=== PATIENT | female | born 2000 | race Hispanic/Latino ===

== ENCOUNTER 2022-09-06 15:25 | Emergency (ER) | payer SELFPAY ==
--- NOTE | 2022-09-06 15:50 | EDPHYS ---
Physician Documentation [facility] Name: Kellee Zaragoza Age: 22 yrs Sex: Female : 2000 Arrival Date: 09/06/2022 Time: 15:28 Bed IW1 Private MD: ED Physician Alan Ordaz HPI: 09/06 15:45 This 22 yrs old Female presents to ER via Unassigned with complaints of kb Infected finger. 16:00 the patient presents with a swollen area of the right index fingernail. Description: kb erythematous, swollen. Onset: The symptoms/episode began/occurred 1 week(s) ago, and became worse. Possible cause(s): unknown. Associated signs and symptoms: Pertinent positives: erythema, swelling. Modifying factors: the symptoms are alleviated by nothing, the symptoms are aggravated by pressure, squeezing the lesion and expressing the contents, touching. Severity of symptoms: At their worst the symptoms were mild, in the emergency department the symptoms are unchanged. The patient has not experienced similar symptoms in the past. The patient has not recently seen a physician. Historical: - Allergies: 15:45 PENICILLINS; mb8 - Home Meds: 15:45 None [Active]; mb8 - PMHx: 15:45 None; mb8 - PSHx: 15:45 section; mb8 - Social history:: Smoking status: Patient denies any tobacco usage or history of. ROS: 16:00 Constitutional: Negative for fever, chills, and weight loss. kb 16:00 Skin: Positive for erythema, swelling, of the right index fingernail. 16:00 All other systems are negative. Exam: 16:00 Constitutional: This is a well developed, well nourished patient who is awake, alert, kb and in no acute distress. Head/Face: Normocephalic, atraumatic. ENT: Moist Mucous membranes Respiratory: Respirations even and unlabored. No increased work of breathing. Talking in full sentences MS/ Extremity: Pulses equal, no cyanosis. Neurovascular intact. Full, normal range of motion. Neuro: Awake and alert, GCS 15, oriented to person, place, time, and situation. Moves all extremities. Normal gait. Psych: Awake, alert, with orientation to person, place and time. Behavior, mood, and affect are within normal limits. 16:00 Skin: abscess, that is small, of the right index fingernail, with fluctuance, with induration. Vital Signs: 15:43 BP 128 / 97; Pulse 82; Resp 15; Temp 98.2; Pulse Ox 99% on R/A; Weight 102.06 kg; mb8 Height 5 ft. 2 in. (157.48 cm); Pain 7/10; 15:43 Body Mass Index 41.15 (102.06 kg, 157.48 cm) 8 Procedures: 16:00 I \T\ D: Incision and drainage was performed for an abscess of the right right index kb fingernail Prepped with alcohol, Incised with 18G needle. Drained small amount purulent fluid. the patient tolerated the procedure well. MDM: 15:42 Patient medically screened. kb 15:44 Data reviewed: vital signs, nurses notes. Data interpreted: Pulse oximetry: on room air kb is 100 %. Interpretation: normal. Counseling: I had a detailed discussion with the patient and/or guardian regarding: the historical points, exam findings, and any diagnostic results supporting the discharge/admit diagnosis, the need for outpatient follow up, a family practitioner, to return to the emergency department if symptoms worsen or persist or if there are any questions or concerns that arise at home. Administered Medications: No medications were administered Disposition: 18:09 Co-signature as Attending Physician, Alan Ordaz MD. rn Disposition Summary: 09/06/22 15:49 Discharge Ordered Location: Home kb Condition: Stable kb Diagnosis - Cutaneous abscess of right hand - paronychia kb Followup: kb - With: Emergency Department - When: As needed - Reason: Worsening of condition Followup: kb - With: Private Physician - When: 2 - 3 days - Reason: Recheck today's complaints, Continuance of care, Re-evaluation by your physician Discharge Instructions: - Discharge Summary Sheet kb - Paronychia, [id number] kb Forms: - Medication Reconciliation Form kb - Thank You Letter kb - Antibiotic Education kb - Prescription Opioid Use kb Prescriptions: - Bactrim DS 800-160 mg Oral Tablet - take 1 tablet by ORAL route every 12 hours for 10 days; 20 tablet; Refills: 0, kb Product Selection Permitted Signatures: Yaneli Garcia, CONCRETE BLOCK LAYER-C CONCRETE BLOCK LAYER-Alan Holbrook MD MD rn Bates, Michael, RN RN mb8 Corrections: (The following items were deleted from the chart) :46 15:45 Allergies: No Known Allergies; shruti mb8 46 15:45 PSHx: Coronary Angioplasty; shruti mb8
--- NOTE | 2022-09-06 15:50 | ER ---
Nurse's Notes [facility] Name: Kellee Zaragoza Age: 22 yrs Sex: Female : 2000 Arrival Date: 09/06/2022 Time: 15:28 Bed IW1 Private MD: Diagnosis: Cutaneous abscess of right hand-paronychia Presentation: 09/06 15:43 Chief complaint: Patient states: swollen right index finger x1 week. Coronavirus mb8 screen: Vaccine status: Patient reports receiving the 2nd dose of the covid vaccine. Ebola Screen: Patient negative for fever greater than or equal to 101.5 degrees Fahrenheit, and additional compatible Ebola Virus Disease symptoms Patient denies exposure to infectious person. Patient denies travel to an Ebola-affected area in the 21 days before illness onset. Initial Sepsis Screen: Does the patient meet any 2 criteria? No. Patient's initial sepsis screen is negative. Does the patient have a suspected source of infection? No. Patient's initial sepsis screen is negative. Risk Assessment: Do you want to hurt yourself or someone else? Patient reports no desire to harm self or others. Onset of symptoms is unknown. 15:43 Method Of Arrival: Ambulatory mb8 15:43 Acuity: MUSTAPHA 4 mb8 Triage Assessment: 15:47 General: Appears in no apparent distress. comfortable, Behavior is calm, cooperative, mb8 appropriate for age. Historical: - Allergies: 15:45 PENICILLINS; mb8 - Home Meds: 15:45 None [Active]; mb8 - PMHx: 15:45 None; mb8 - PSHx: 15:45 section; mb8 - Social history:: Smoking status: Patient denies any tobacco usage or history of. Screenin:46 Abuse screen: Denies threats or abuse. Denies injuries from another. Nutritional mb8 screening: No deficits noted. Tuberculosis screening: No symptoms or risk factors identified. Fall Risk None identified. Assessment: 15:46 Pain: Complains of pain in dorsal aspect of distal phalanx of right index finger and mb8 right index fingernail Pain does not radiate. Pain currently is 7 out of 10 on a pain scale. Quality of pain is described as aching, Pain began 1 week ago Is continuous. Vital Signs: 15:43 BP 128 / 97; Pulse 82; Resp 15; Temp 98.2; Pulse Ox 99% on R/A; Weight 102.06 kg; mb8 Height 5 ft. 2 in. (157.48 cm); Pain 7/10; 15:43 Body Mass Index 41.15 (102.06 kg, 157.48 cm) mb8 ED Course: 15:28 Patient arrived in ED. mr 15:32 Yaneli Garcia FNP-C [facility]. kb 15:32 Alan Ordaz MD is Attending Physician. kb 15:45 Triage completed. mb8 15:46 Arm band placed on. mb8 15:46 No provider procedures requiring assistance completed. Patient did not have IV access mb8 during this emergency room visit. 15:47 Patient has correct armband on for positive identification. mb8 Administered Medications: No medications were administered Medication: 15:46 VIS not applicable for this client. mb8 Outcome: 15:49 Discharge ordered by . kb 16:02 Discharged to home ambulatory. mb8 16:02 Condition: stable 16:02 Discharge instructions given to patient, Instructed on discharge instructions, follow up and referral plans. medication usage, Demonstrated understanding of instructions, follow-up care, medications, Prescriptions given X 1. 16:02 Patient left the ED. mb8 Signatures: Yaneli Garcia FNP-C FNP-Ckb Hector Malaika kraft McknightZach, RN RN mb8 Corrections: (The following items were deleted from the chart) 15:46 15:45 Allergies: No Known Allergies; mb8 mb8 15:46 15:45 PSHx: Coronary Angioplasty; mb8 mb8
[2022-09-06 17:22] VITALS: BP 128/97; TEMP 98.2; O2SAT 99
== END 2022-09-06 16:02 | disposition home or self-care (01) ==
LOC: ER 15:25
PROC: 0H9FXZZ Drainage of Right Hand Skin, External Approach (ICD-10-PCS; principal; 2022-09-06)
DX: L03.011 Cellulitis of right finger (principal)
CPT/HCPCS: 99282

== ENCOUNTER 2023-06-01 11:58 | Emergency (ER) | payer BC ==
--- OUTSIDE RECORDS SUMMARY | 2023-06-01 12:02 | XMS REPORT | Continuity of Care Document ---
:2000 Author Organization [facility] t Address [address] [place] [address] Care Team Providers Name Role Phone PCP, PATIENT DOES NOT HAVE A Primary Care Physician Unavaila Cathleen August Attending Clinician Unknown, Attending Attending Clinician Unavailable CATHLEEN JI Attending Clinician Unavailable Doctor Unassigned, [place] Attending Clinician Unavailable MAGGIE GATES Attending Clinician Unavailable Maggie Gates MD Attending Clinician NITA RODRIGUEZ Attending Clinician Unavailable Nita Curiel Attending Clinician BRIGETTE BETHEA Attending Clinician Unavailable Payers Payer Name Policy Type Policy Number Effective Date Expiration Date Zack [employer] [id number] 2017 2018 HEALTH 00:00:00 00:00:00 [employer] O [id number] 2013 2018 00:00:00 00:00:00 Problems Condition Condition Condition Status Onset Resolution Last Treating Co mments Source Name Details Category Date Date Treatment Clinician Date Morbid Morbid Disease Active Univers obesity obesity 8-30 [place] mass index 00 [place] dical of of Branch 40.0-49.9 40.0-49.9 Nexplanon Nexplanon Disease Active Uni vers in place in place 6-25 ity of 00:00: [place] 00 Medical Branch Obesity Obesity Disease Active Univers (BMI (BMI 4-13 ity of 30-39.9) 30-39.9) 00:00: [place] 00 Medical Branch S/P S/P Disease Active 2017-10 Univers 0-11 ity of section section 00:00: [place] [facility] Family Family Disease Active 2017-10 Univers history of history of 0-11 [place] y of cleft lip cleft [place] 00 Medical palate-mat palate-mat Br anch noheliaal fide cousin cousin History of History of Disease Active U nivers depression depression 6-03 it y of 00:00: [place] [facility] [place] Family Family Disease Active Overview: Univer s history of history of 1-04 [place] ity of congenital congenital 00:00: g of this [place] anomalies anomalies 00 note [facility] might be Branch different from the original. 1. 1st cousin maternal side with cleft palate, 2. 1st cousin maternal side born with 6 toes on both feet Allergies, Adverse Reactions, Alerts Allergy Allergy Status Severity Reaction(s) Onset Inactive Treating Comm ents Source Name Type Date Date Clinician PENICILL DRUG Active Hives 2014-10 Univers IN INGREDI 1-11 ity of 00:00: [place] 00 Medical [place] Penicill Propensi Active Hives 2014-10 Univer s in ty to 1-11 ity of adverse 00:00: [place] reaction 00 Medical s Branch Social History Social Habit Start Date Stop Date Quantity Comments Source Exposure to 2023-02-26 2023-03-08 Not sure [facility] SARS-CoV-2 00:00:00 12:04:00 [place] [facility] (event) Branch Alcohol intake 2022-07-02 2022-07-02 Current [facility] 00:00:00 00:00:00 non-drinker of [facility] alcohol (finding) Branch Tobacco use and 2022-06-29 2022-06-29 Smokeless tobacco Un iversity of exposure 00:00:00 00:00:00 non-user [facility] Sex Assigned At [birth year] Universit y of 00:00:00 00:00:00 [facility] Smoking Status Start Date Stop Date Source Never smoked tobacco [facility] [place] [facility] Medications Ordered Filled Start Stop Current Ordering Indication Dosage Frequency Signature Comments Components Source Medication Medication Date Date Medication? Clinician (SIG) Name Name azithromyci 0 Yes [id number] 250mg Take 1 Univers n 5-09 tablet by ity of (ZITHROMAX 00:00: mouth in [place] Z-DEBI) 250 00 the Medical mg tablet morning. Branch methylPREDN 0 Yes [id number] Take by Univers ISolone 03-08 mouth ity of (MEDROL, 00:00: SEE-INSTRU [place] DEBI,) 4 mg 00 CTIONS. Medica l tablets follow Branch package directions azithromyci Yes [id number] 250mg Take 1 Univers n 5-09 tablet by ity of (ZITHROMAX 00:00: mouth in [place] Z-DEBI) 250 00 the Medical mg tablet morning. Branch methylPREDN Yes [id number] Take by Univers ISolone 09 mouth ity of (MEDROL, 00:00: SEE-INSTRU [place] DEBI,) 4 mg 00 CTIONS. Medica l tablets follow Branch package directions promethazin 2022- Yes [id number] 5mL Take 5 mL Univers e-dextromet 5- 05-20 by mouth 4 i ty of horphan 00:00: 04:59 (four) [place] 6.25-15 00 :00 times Medical mg/5 mL daily for Branch syrup 10 days. promethazin 2022- Yes [id number] 5mL Take 5 mL Univers e-dextromet 5-09 05-20 by mouth 4 i ty of horphan 00:00: 04:59 (four) [place] 6.25-15 00 :00 times Medical mg/5 mL daily for Branch syrup 10 days. No known No No known [facility] rs medications 07-02 medication it y of 14:31: s [address] Immunizations Ordered Filled Immunization Date Status Comments Sour e Immunization Name Name HPV9 2022-07-02 Completed University of 00:00:00 [facility] HPV9 2022-07-02 Completed University of 00:00:00 [facility] HPV9 2022-07-02 Completed University of 00:00:00 [facility] HPV9 2022-07-02 Completed University of 00:00:00 [facility] 2019-04-17 Completed University of 00:00:00 [facility] 2019-04-17 Completed University of 00:00:00 [facility] HPV9 2019-04-17 Completed University of 00:00:00 [facility] Branch HPV9 2019-04-17 Completed University of 00:00:00 [facility] Rho (d) Immune 2019-02-10 Completed University of Globulin 00:00:00 [facility] Rho (d) Immune 2019-02-10 Completed University of Globulin 00:00:00 [facility] Rho (d) Immune 2019-02-10 Completed University of Globulin 00:00:00 [facility] Rho (d) Immune 2019-02-10 Completed University of Globulin 00:00:00 [facility] TDAP 2019-01-25 Completed University of 00:00:00 [facility] TDAP 2019-01-25 Completed University of 00:00:00 [facility] TDAP 2019-01-25 Completed University of 00:00:00 [facility] TDAP 2019-01-25 Completed University of 00:00:00 [facility] Rho (d) Immune 2018-12-14 Completed University of Globulin 00:00:00 [facility] Rho (d) Immune 2018-12-14 Completed University of Globulin 00:00:00 [facility] Rho (d) Immune 2018-12-14 Completed University of Globulin 00:00:00 [facility] Rho (d) Immune 2018-12-14 Completed University of Globulin 00:00:00 [facility] Vital Signs Vital Name Observation Time Observation Value Comments Source Systolic blood 2023-03-08 17:05:00 134 mm[Hg] Univer sity of pressure [facility] Diastolic blood 2023-03-08 17:05:00 87 mm[Hg] Unive rsity of pressure [facility] Heart rate 2023-03-08 17:05:00 85 /min [facility] Body temperature 2023-03-08 17:05:00 36.61 Agnieszka [facility] Respiratory rate 2023-03-08 17:05:00 18 /min [facility] Body height 2023-03-08 17:05:00 154.9 cm [facility] Body weight 2023-03-08 17:05:00 98.385 kg [facility] BMI 2023-03-08 17:05:00 40.98 kg/m2 [facility] Oxygen saturation in 2023-03-08 17:05:00 98 /min [facility] Arterial blood by [facility] Pulse oximetry Branch Systolic blood 2022-07-02 19:30:00 123 mm[Hg] Univer sity of pressure [facility] Diastolic blood 2022-07-02 19:30:00 75 mm[Hg] Unive rsity of pressure [facility] Heart rate 2022-07-02 19:30:00 87 /min [facility] Body temperature 2022-07-02 19:30:00 36.94 Agnieszka [facility] Respiratory rate 2022-07-02 19:30:00 18 /min [facility] Body height 2022-07-02 19:30:00 157.5 cm [facility] Body weight 2022-07-02 19:30:00 106.142 kg [facility] BMI 2022-07-02 19:30:00 42.80 kg/m2 [facility] Procedures Procedure Date / Time Performed Performing Clinician [facility] e POCT TEST 2023-03-08 17:18:00 Cathleen Ji [facility] POCT SARS-COV-2 2023-03-08 17:07:00 Cathleen Ji [place] ANTIGEN (BINAX NOW) Medical Bran [facility] PATIENT 2023-03-08 16:58:48 Doctor Unassigned, No [facility] FINANCIAL POLICY Name [facility] GARDASIL 9 (HPV 9V) 2022-07-02 20:14:37 Maggie Gates [facility] VACCINE [facility] Encounters Start End Encounter Admission Attending Care Care Encounter Source Date/Time Date/Time Type Type Clinicians Facility Department ID 2023-03-08 2023-03-08 Urgent Cathleen Ji [facility] [id number] [facility] [place] [facility] 12:00:00 12:20:00 Care Unknown, Attending HEALTH [id number] ity of [place] 4.2.7.2.686 [place] TRAVON?BLEA [id number] Hi elmer [address] MEDICAL OFFICE BUILDING 2023-03-08 2023-03-08 Outpatient R SULEIMAN, [facility] [id number] Univers 12:00:00 12:00:00 MATTHEWANEUDY itjesús [facility] 2023-03-08 2023-03-08 Orders Doctor GOMEZ [id number] Univers 00:00:00 00:00:00 Only Unassigned, PARAMJIT [id number] ity of [facility] [id number] [place] [id number] [address] 2023-03-08 2023-03-08 Letter Suleiman [facility] [id number] Univers 00:00:00 00:00:00 (Out) [facility] [id number] it y of [place] [id number] [place] TRAVON?BLEA [phone] Hi elmer EY [address] MEDICAL OFFICE BUILDING 2022-10-01 2022-10-01 Outpatient R AD, [facility] [id number] Univers 15:30:00 15:30:00 [facility]22-07-02 2022-07-02 Office Ad, [facility] [id number] Univers 14:30:00 15:03:56 Visit Maggie Domenico MENDES [id number] ity [id number] [id number] Hi elmer [facility] [address] [facility] 2022-07-02 2022-07-02 Outpatient R ADUM, [facility] [id number] Univers 14:30:00 15:03:56 [facility] 2022-06-29 2022-06-29 Outpatient R ADUM, [facility] [id number] Univers 14:30:00 15:06:26 MAGGIE ity [facility] 2022-06-29 2022-06-29 Outpatient R ADUM, [facility] [id number] Univers 14:30:00 15:06:26 MAGGIE [facility] 2022-06-29 2022-06-29 Office Adum, [facility] [id number] Univers 14:30:00 15:06:26 Visit Maggie MENDES [id number] [place] [phone] [address] 2022-06-29 2022-06-29 [facility] 1.2.840.114 [id number] Univers 00:00:00 00:00:00 (Out) Maggie MENDES [id number] ity [place] [id number] [address] 2022-06-28 2022-06-28 Orders Doctor JASON 1.2.840.114 [id number] Univers 00:00:00 00:00:00 Only Unassigned, PARAMJIT [id number] ity of [facility] [facility] [id number] [place] [id number] [facility] [address] [place] 2020-11-20 2020-11-20 Outpatient [facility] [id number] Univers 14:45:00 14:45:00 NITA brooks [facility] 2020-07-11 2020-07-11 [facility] 1.2.840.114 [id number] Univers 00:00:00 00:00:00 Nita Morrison PHP LAMP DEVELOPER [id number] it y of [facility] [id number] [place] MATERNAL [phone] Med ical & CHILD [address] [place] [address] 2020-05-30 2020-05-30 Letter Doctor JASON [id number] Univers 00:00:00 00:00:00 (Out) Unassigned, PARAMJIT [id number] ity of [facility] [id number] [place] [id number] [address] 2018-05-02 2018-05-02 Outpatient BRIGETTE HELTON [facility] [id number] Univers 10:45:00 13:43:42 todd [facility] Results Test Description Test Time Test Comments Results Result Comments Source POCT TEST 2023-03-08 17:18:00 Test Item Value Reference Range Interpretation Comme nts POCT PREG (test code = 1605) Negative On board controls acceptable with C Line Yes (test code = 3574) POCT PREG LOT # (test code = 3575) POCT PREG TEST DATE (test code = 3576) ROSA M (test code = ROSA M) accurate development and interpretation of all internal controls Lab Interpretation (test code = 66576-4) Normal [facility] [place] [facility] ANTIGEN (BINAX NOW)2023-03-08 17:08:00 Test Item Value Reference Range Interpretation Comments POCT SARS-COV-2 ANTIGEN Not Detected Not Detected (test code = 15333-4) On board controls Yes acceptable with C Line (test code = 3574) ROSA M (test code = ROSA M) accurate development and interpretation of all internal controls Lab Interpretation Normal (test code = 87981-3) [facility]
[2023-06-01 12:30] LABS: Absolute Lymphocytes (CBC) 2.7 K/uL (0.7-4.9); Hematocrit 39.3 % (36.0-45.0); Lymphocytes % 26.4 % (15.3-44.8); MPV 7.3 fL (7.6-11.3); RBC Red Blood Cell Count 4.46 M/uL (3.86-4.86)
[2023-06-01 12:33] LABS: Specific Gravity 1.028 (1.005-1.030)
[2023-06-01 12:35] LABS: Urine Bacteria 20-50 /HPF (<20); Urine RBC >50 /HPF (None Seen)
[2023-06-01 12:49] LABS: Albumin 3.5 g/dL (3.4-5.0); Bilirubin Total 0.4 mg/dL (0.2-1.0); Potassium 3.6 mEq/L (3.5-5.1); Protein, Total 7.7 g/dL (6.4-8.2)
--- NOTE | 2023-06-01 14:02 | RAD REPORT ---
EXAM DESCRIPTION: US - Transvaginal OB - 06/01/2023 1:50 pm CLINICAL HISTORY: VAGINAL BLEEDING COMPARISON: No comparisons FINDINGS: The uterus is normal sized. Endometrium measures 9 mm. No IUP is seen. The maternal adnexa and ovaries are within normal limits. Normal Doppler blood flow was demonstrated to both ovaries. IMPRESSION: No IUP is seen. If the patient has a positive HCG level, this would be considered a preg robert of unknown location. Follow-up serial HCG levels and pelvic sonography in 7-10 days would be re commended.
--- NOTE | 2023-06-01 14:25 | EDPHYS ---
Physician Documentation [facility] Name: Kellee Zaragoza Age: 22 yrs Sex: Female : 2000 Arrival Date: 06/01/2023 Time: 11:58 Bed 20 Private MD: ED Physician Alan Ordaz HPI: 06/01 12:33 This 22 yrs old Female presents to ER via Ambulatory with complaints of sb4 Abdominal Pain, Vomiting. 12:33 The patient presents with abdominal pain in the lower abdomen. Onset: The sb4 symptoms/episode began/occurred 1 week(s) ago. The symptoms do not radiate. Associated signs and symptoms: Pertinent positives: nausea and vomiting, dysuria, vaginal bleeding, Pertinent negatives: chest pain, diarrhea, hematuria, shortness of breath. The patient has not experienced similar symptoms in the past. patient states she has been experiencing diffuse lower abdominal pain over the past week associated with heavy vaginal bleeding that she does not attribute to her menstrual cycle. states the pain is so bad she can barely move sometimes and it has caused her to have some dizziness/blurry vision. she also reports urinating more frequently. endorses n/v but denies diarrhea or fevers. 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 - Social history:: Smoking status: Patient denies any tobacco usage or history of. ROS: 12:43 Constitutional: Negative for fever, chills, and weight loss, Eyes: Negative for injury, sb4 pain, redness, and discharge, ENT: Negative for injury, pain, and discharge, Cardiovascular: Negative for chest pain, palpitations, and edema, Respiratory: Negative for shortness of breath, cough, wheezing, and pleuritic chest pain, Back: Negative for injury and pain, MS/Extremity: Negative for injury and deformity, Skin: Negative for injury, rash, and discoloration. 12:43 Abdomen/GI: Positive for abdominal pain, nausea, vomiting, Negative for diarrhea, constipation. 12:43 : Positive for urinary frequency, vaginal bleeding, Negative for flank pain, burning with urination, difficulty urinating, vaginal discharge, vaginal itching. 12:43 All other systems are negative. Exam: 12:43 Constitutional: This is a well developed, well nourished patient who is awake, alert, sb4 and in no acute distress. Head/Face: Normocephalic, atraumatic. Eyes: Extra-ocular motions intact. Periorbital areas with no swelling, redness, or edema. ENT: Mucous membranes moist. Cardiovascular: Regular rate and rhythm with a normal S1 and S2. Respiratory: Lungs have equal breath sounds bilaterally, clear to auscultation and percussion. No rales, rhonchi or wheezes noted. No increased work of breathing, no retractions or nasal flaring. Abdomen/GI: Soft, non-tender, no distension. Skin: Warm, dry with normal turgor. Normal color with no rashes, no lesions, and no evidence of cellulitis. MS/ Extremity: Pulses equal, no cyanosis. Neurovascular intact. Full, normal range of motion. Vital Signs: 12:17 BP 145 / 80; Pulse 97; Resp 18; Temp 98.3(O); Pulse Ox 100% on R/A; Weight 95.25 kg; me1 Height 4 ft. 11 in. ; Pain 0/10; 12:17 BP 139 / 78; Pulse 91; Resp 18; Pulse Ox 100% on R/A; Pain 6/10; ld1 12:17 Body Mass Index 42.41 (95.25 kg, 149.86 cm) me1 12:17 Pain Scale: Adult me1 12:17 Pain Scale: Adult ld1 MDM: 12:01 Patient medically screened. sb4 12:44 Differential diagnosis: appendicitis, Dysmenorrhea, Ectopic , Endometriosis, sb4 non-specific abd pain, urinary tract infection, IUP. 14:21 Data reviewed: vital signs, nurses notes, lab test result(s), radiologic studies, and sb4 as a result, I will discharge patient. Counseling: I had a detailed discussion with the patient and/or guardian regarding: the historical points, exam findings, and any diagnostic results supporting the discharge/admit diagnosis, lab results, radiology results, the need for outpatient follow up, an OB/Gyne specialist, to return to the emergency department if symptoms worsen or persist or if there are any questions or concerns that arise at home. Special discussion: Further emergent ED testing is not indicated at this point in time. I discussed with the patient/guardian in detail the need to arrange with the PCP or specialist further outpatient testing, OB ultrasound, and repeat beta HCG in 48 hours. 06/01 12:12 Order name: CBC with Diff; Complete Time: 12:37 sb4 06/01 12:12 Order name: CMP; Complete Time: 12:50 sb4 06/01 12:12 Order name: Lipase; Complete Time: 12:50 sb4 06/01 12:12 Order name: Test, Urine; Complete Time: 12:35 sb4 06/01 12:30 Order name: Urine Microscopic Only; Complete Time: 12:37 EDMS 06/01 12:35 Order name: HCG-Quantitative; Complete Time: 14:15 sb4 06/01 12:37 Order name: Transvaginal OB US; Complete Time: 14:02 sb4 06/01 12:12 Order name: IV Saline Lock; Complete Time: 12:17 sb4 06/01 12:12 Order name: Labs collected and sent; Complete Time: 12:17 sb4 Administered Medications: No medications were administered Disposition: 14:45 Co-signature as Attending Physician, Alan Ordaz MD I reviewed the patient's care rn provided by the Advanced Practice Provider and agree with the diagnosis and treatment plan. Disposition Summary: 06/01/23 14:24 Discharge Ordered Location: Home sb4 Problem: new sb4 Symptoms: are unchanged sb4 Condition: Stable sb4 Diagnosis - Other specified abnormal uterine and vaginal bleeding sb4 - Acute cystitis sb4 - Unspecified ectopic without intrauterine sb4 Followup: sb4 - With: Private Physician - When: 48 Hours - Reason: Repeat Beta-HCG (48 Hours) Discharge Instructions: - Discharge Summary Sheet sb4 - Ectopic , Seem-ov-Hpua sb4 Forms: - Medication Reconciliation Form sb4 - Thank You Letter sb4 - Antibiotic Education sb4 - Prescription Opioid Use sb4 - Patient Portal Instructions sb4 Prescriptions: - Macrobid 100 mg Oral Capsule - take 1 capsule by ORAL route every 12 hours for 7 days; 14 capsule; Refills: 0, sb4 Product Selection Permitted Signatures: Dispatcher [employer] Alan Matute MD MD rn Brown, Sophia, PA-C PA-C sb4 Eddleman, Barbie, RN RN me1 Corrections: (The following items were deleted from the chart) 12:28 12:13 Urinalysis+U.LAB.BRZ ordered. EDMS EDMS
--- NOTE | 2023-06-01 14:25 | ER ---
Nurse's Notes [facility] Name: Kellee Zaragoza Age: 22 yrs Sex: Female : 2000 Arrival Date: 06/01/2023 Time: 11:58 Bed 20 Private MD: Diagnosis: Other specified abnormal uterine and vaginal bleeding;Acute cystitis;Unspecified ectopic without intrauterine Presentation: 06/01 12:13 Chief complaint: Patient states: abdominal pain, vomiting, heavy bleeding. Coronavirus me1 screen: Vaccine status: Patient reports receiving the 2nd dose of the covid vaccine. At this time, the client does not indicate any symptoms associated with coronavirus-19. Ebola Screen: No symptoms or risks identified at this time. Initial Sepsis Screen: Does the patient meet any 2 criteria? No. Patient's initial sepsis screen is negative. Does the patient have a suspected source of infection? No. Patient's initial sepsis screen is negative. Risk Assessment: Do you want to hurt yourself or someone else? Patient reports no desire to harm self or others. Onset of symptoms was May 25, 2023. 12:13 Method Of Arrival: Ambulatory [facility] 12:13 Acuity: MUSTAPHA 4 [facility] Triage Assessment: 12:14 General: Appears uncomfortable, obese, Behavior is calm, cooperative, appropriate for [facility] age, Reports c/o suprapubic pain that is sharp, heavy bleeding with blood clots, dizziness, n/v. Denies diarrhea, denies dysuria. Denies fever/chills. Pain: Denies pain. Neuro: Level of Consciousness is awake, alert, obeys commands, Oriented to person, place, time, situation. Cardiovascular: Capillary refill < 3 seconds Patient's skin is warm and dry. Respiratory: Respiratory effort is even, unlabored, Respiratory pattern is regular, symmetrical. GI: Reports nausea, vomiting, Patient currently denies diarrhea. : Reports vaginal bleeding that is with clots, heavy flow since one week ago. Denies burning with urination. 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 - Social history:: Smoking status: Patient denies any tobacco usage or history of. Screenin:17 [facility] [place] ED Fall Risk Assessment (Adult) History of falling in the last 3 months, ld1 including since admission No falls in past 3 months (0 pts). Abuse screen: Denies threats or abuse. Denies injuries from another. Nutritional screening: No deficits noted. Tuberculosis screening: No symptoms or risk factors identified. Assessment: 12:17 General: Appears in no apparent distress. comfortable, Behavior is calm, cooperative, ld1 appropriate for age. Pain: Complains of pain in abdomen Pain does not radiate. Pain currently is 6 out of 10 on a pain scale. Quality of pain is described as throbbing. Neuro: Level of Consciousness is awake, alert, obeys commands, Oriented to person, place, time, situation. Cardiovascular: Capillary refill < 3 seconds Patient's skin is warm and dry. Respiratory: Airway is patent Respiratory effort is even, unlabored. GI: Abdomen is round non-distended, Bowel sounds present X 4 quads. Abd is soft Abd is non tender. : Reports vaginal bleeding that is. EENT: No signs and/or symptoms were reported regarding the EENT system. Derm: No signs and/or symptoms reported regarding the dermatologic system. Musculoskeletal: No signs and/or symptoms reported regarding the musculoskeletal system. Vital Signs: 12:17 BP 145 / 80; Pulse 97; Resp 18; Temp 98.3(O); Pulse Ox 100% on R/A; Weight 95.25 kg; me1 Height 4 ft. 11 in. ; Pain 0/10; 12:17 BP 139 / 78; Pulse 91; Resp 18; Pulse Ox 100% on R/A; Pain 6/10; ld1 12:17 Body Mass Index 42.41 (95.25 kg, 149.86 cm) me1 12:17 Pain Scale: Adult me1 12:17 Pain Scale: Adult ld1 ED Course: 12:01 Patient arrived in ED. mr 12:01 Rama Rodríguez PA-C is PHCP. sb4 12:01 Alan Ordaz MD is Attending Physician. sb4 12:10 Latesha Archer, JUAN CARLOS is Primary Nurse. ld1 12:14 Triage completed. me1 12:17 Test, Urine Sent. ld1 12:17 Lipase Sent. ld1 12:17 CMP Sent. ld1 12:17 CBC with Diff Sent. ld1 12:17 No provider procedures requiring assistance completed. Inserted saline lock: 20 gauge ld1 in right antecubital area, using aseptic technique. Blood collected. 12:17 Patient has correct armband on for positive identification. Placed in gown. Bed in low ld1 position. Call light in reach. Side rails up X2. wildlife protector on. Pulse ox on. NIBP on. Door closed. Noise minimized. Warm blanket given. 13:51 Transvaginal OB US In Process Unspecified. EDMS 14:38 IV discontinued, intact, bleeding controlled, No redness/swelling at site. ld1 14:38 Arm band placed on right wrist. ld1 Administered Medications: No medications were administered Medication: 12:17 VIS not applicable for this client. ld1 Outcome: 14:24 Discharge ordered by MD. sb4 14:38 Discharged to home ambulatory. ld1 14:38 Condition: stable 14:38 Discharge instructions given to patient, Instructed on discharge instructions, follow up and referral plans. medication usage, Demonstrated understanding of instructions, follow-up care, medications, Prescriptions given X 1. 14:38 Patient left the ED. ld1 Signatures: Dispatcher [employer] EDTN Malaika Young Lauren, RN RN ld1 Rama Rodríguez PA-C PA-Kam sb4 Barbie Manuel, RN RN me1 Corrections: (The following items were deleted from the chart) 12:28 12:17 Urinalysis+U.LAB.BRZ drawn and sent. ld1 EDMS
[2023-06-01 14:49] VITALS: BP 139/78; TEMP 98.3; O2SAT 100
== END 2023-06-01 14:38 | disposition home or self-care (01) ==
LOC: ER 11:58
DX: N30.00 Acute cystitis without hematuria (principal); O00.90 Unspecified ectopic pregnancy without intrauterine pregnancy; Z88.0 Allergy status to penicillin
CPT/HCPCS: 36415; 76817; 80053; 81015; 81025; 83690; 84702; 85025

== ENCOUNTER 2023-10-06 18:34 | Emergency (ER) | payer OTHER, BC ==
--- OUTSIDE RECORDS SUMMARY | 2023-10-06 18:37 | XMS REPORT | Continuity of Care Document ---
Author Name Unknown Address [address] [facility] [place] [address] [facility] Address [address] [facility] [address] [place] [address] Care Team Providers Care Skip Hoist Operator Name Role Phone PCP, PATIENT DOES NOT HAVE A Primary Care Physic darrin Unavailable BOB WOLFF Attending Clinician Unavailable Bob Burgos Attending Clinician [phone] Unknown, Attending Attending Clinician Unavailab le Doctor Unassigned, Mcbride Attending Clinician U navailable SANTINO GARCIA Attending Clinician Unavailable Santino Garcia MD Attending Clinician [phone] SHANNON FREGOSO Attending Clinician SHANNON Espinal Attending Clinician Maggie Zacarias MD Attending Clinician [phone] Cathleen Hall Attending Clinician [phone] CATHLEEN BEARDEN Attending Clinician Unavailable MAGGIE LI Attending Clinician Unavailable NITA DENIS Attending Clinician UnavailNita Beasley Attending Clinician [phone] BRIGETTE BETHEA Attending Clinician Unavailable SANTINO GARCIA Admitting Clinician Unavailable Payers Payer Name Policy Type Policy Number Effective Date Expirati on Date Source [facility] [id number] 2021 00:00:00 [facility] [id number] 2017 00:00:00 2018 00:00:00 HODAN O [id number] 2013 00:00:00 2018 00:00:00 Problems Condition Name Condition Details Condition Category Status Onset Date Resolution Date Last Treatment Date Treating Clinician Comments Source Morbid obesity with body mass index of 40.0-49.9 Morbid obesity with body mass index of 40.0-49.9 Disease Active 8 00:00: 00 [facility] Nexplanon in place Nexplanon in place Disease Active 04-24 00:00: 00 [facility] Obesity (BMI 30-39.9) Obesity (BMI 30-39.9) Disease Active 02-10 00:00: 00 [facility] S/P section S/P section Disease Active 2017-10 0 00:00: 00 [facility] Family history of cleft lip and palate-mat ernal cousin Family history of cleft lip and palate-mat ernal cousin Disease Active 2017-10 0 00:00: 00 [facility] History of depression History of depression Disease Active 603 00:00: 00 [facility] Family history of congenital anomalies Family history of congenital anomalies Disease Active 1-04 00:00: 00 Overview: Formattin g of this note might be different from the original. 1. 1st cousin maternal side with cleft palate, 2. 1st cousin maternal side born with 6 toes on both feet [facility] Allergies, Adverse Reactions, Alerts Allergy Name Allergy Type Status Severity Reaction(s) Onset Date Inactive Date Treating Clinician Comments Source PENICILL IN DRUG INGREDI Active Hives 2014-10 00:00: 00 [facility] Penicill in Propensi ty to adverse reaction s Active Hives 2014-10 00:00: 00 [facility] Social History Social Habit Start Date Stop Date Quantity Comments Source Gender identity [facility] Alcohol intake 2023-08-01 00:00:00 2023-08-01 00:00:00 Current non-drinker of alcohol (finding) [facility] Exposure to SARS-CoV-2 (event) 2023-02-26 00:00:00 2023-03-08 12:04:00 Not sure [facility] Tobacco use and exposure 2022-06-29 00:00:00 2022-06-29 00:00:00 Smokeless tobacco non-user [facility] History of Social function 2019-05-10 00:00:00 2019-05-10 00:00:00 [facility] Sex Assigned At 2000 00:00:00 2000 00:00:00 [facility] Smoking Status Start Date Stop Date Source Never smoked tobacco [facility] Medications Ordered Medication Name Filled Medication Name Start Date Stop Date Current Medication? Ordering Clinician Indication Dosage Frequency Signature (SIG) Comments Components Source azithromyci n 500 mg tablet 2022-10 00:00: 00 08-07 04:59 :00 Yes [id number] 500mg Take 1 tablet by mouth in the morning for 5 days. [facility] azithromyci n 500 mg tablet 2022-10 00:00: 00 08-07 04:59 :00 Yes [id number] 500mg Take 1 tablet by mouth in the morning for 5 days. [facility] rho(D) immune globulin (RHOGAM) syringe 300 mcg 06-06 21:16: 59 Yes 300ug 300 mcg, Intramuscu lar, ONCE, For 1 dose, Conditiona l, Routine [facility] Nitrofurant oin&Nit. Macrocryst 100 mg capsule 06-01 00:00: 00 Yes TAKE 1 CAPSULE BY MOUTH EVERY 12 HOURS FOR 7 DAYS [facility] Nitrofurant oin&Nit. Macrocryst 100 mg capsule 06-01 00:00: 00 Yes TAKE 1 CAPSULE BY MOUTH EVERY 12 HOURS FOR 7 DAYS [facility] Nitrofurant oin&Nit. Macrocryst 100 mg capsule 06-01 00:00: 00 Yes TAKE 1 CAPSULE BY MOUTH EVERY 12 HOURS FOR 7 DAYS [facility] Nitrofurant oin&Nit. Macrocryst 100 mg capsule 2023-0 8-02 00:00: 00 Yes TAKE 1 CAPSULE BY MOUTH EVERY 12 HOURS FOR 7 DAYS [facility] azithromyci n (ZITHROMAX Z-DEBI) 250 mg tablet 2022-0 -09 00:00: 00 Yes [id number] 250mg Take 1 tablet by mouth in the morning. [facility] methylPREDN ISolone (MEDROL, DEBI,) 4 mg tablets 0 - 00:00: 00 Yes [id number] Take by mouth SEE-INSTRU CTIONS. follow package directions [facility] azithromyci n (ZITHROMAX Z-DEBI) 250 mg tablet 2022-0 - 00:00: 00 Yes [id number] 250mg Take 1 tablet by mouth in the morning. [facility] methylPREDN ISolone (MEDROL, DEBI,) 4 mg tablets 2022-0 - 00:00: 00 Yes [id number] Take by mouth SEE-INSTRU CTIONS. follow package directions [facility] azithromyci n (ZITHROMAX Z-DEBI) 250 mg tablet 2022-0 03-08 00:00: 00 Yes [id number] 250mg Take 1 tablet by mouth in the morning. [facility] methylPREDN ISolone (MEDROL, DEBI,) 4 mg tablets 2022-0 - 00:00: 00 Yes [id number] Take by mouth SEE-INSTRU CTIONS. follow package directions [facility] azithromyci n (ZITHROMAX Z-DEBI) 250 mg tablet 2022-0 - 00:00: 00 Yes [id number] 250mg Take 1 tablet by mouth in the morning. [facility] methylPREDN ISolone (MEDROL, DEBI,) 4 mg tablets 2022-0 - 00:00: 00 Yes [id number] Take by mouth SEE-INSTRU CTIONS. follow package directions [facility] azithromyci n (ZITHROMAX Z-DEBI) 250 mg tablet 2022-0 -09 00:00: 00 Yes [id number] 250mg Take 1 tablet by mouth in the morning. [facility] methylPREDN ISolone (MEDROL, DEBI,) 4 mg tablets 03-08 00:00: 00 Yes [id number] Take by mouth SEE-INSTRU CTIONS. follow package directions [facility] azithromyci n (ZITHROMAX Z-DEBI) 250 mg tablet 03-08 00:00: 00 Yes [id number] 250mg Take 1 tablet by mouth in the morning. [facility] methylPREDN ISolone (MEDROL, DEBI,) 4 mg tablets 03-08 00:00: 00 Yes [id number] Take by mouth SEE-INSTRU CTIONS. follow package directions [facility] azithromyci n (ZITHROMAX Z-DEBI) 250 mg tablet 03-08 00:00: 00 Yes [id number] 250mg Take 1 tablet by mouth in the morning. [facility] methylPREDN ISolone (MEDROL, DEBI,) 4 mg tablets 03-08 00:00: 00 Yes [id number] Take by mouth SEE-INSTRU CTIONS. follow package directions [facility] promethazin e-dextromet horphan 6.25-15 mg/5 mL syrup 03-08 00:00: 00 03-19 04:59 :00 No [id number] 5mL Take 5 mL by mouth 4 (four) times daily for 10 days. [facility] promethazin e-dextromet horphan 6.25-15 mg/5 mL syrup 03-08 00:00: 00 03-19 04:59 :00 No [id number] 5mL Take 5 mL by mouth 4 (four) times daily for 10 days. [facility] No known medications 07-02 14:31: 10 No No known medication s [facility] Immunizations Ordered Immunization Name Filled Immunization Name Date Status Comments Source [facility] 2022-07-02 00:00:00 Completed [facility] 2022-07-02 00:00:00 Completed [facility] 2022-07-02 00:00:00 Completed [facility] HPV9 2022-07-02 00:00:00 Completed [facility] HPV9 2022-07-02 00:00:00 Completed [facility] HPV9 2022-07-02 00:00:00 Completed [facility] HPV9 2019-04-17 00:00:00 Completed [facility] HPV9 2019-04-17 00:00:00 Completed [facility] HPV9 2019-04-17 00:00:00 Completed [facility] HPV9 2019-04-17 00:00:00 Completed [facility] HPV9 2019-04-17 00:00:00 Completed [facility] HPV9 2019-04-17 00:00:00 Completed [facility] Rho (d) Immune Globulin 2019-02-10 00:00:00 Completed [facility] Rho (d) Immune Globulin 2019-02-10 00:00:00 Completed [facility] Rho (d) Immune Globulin 2019-02-10 00:00:00 Completed [facility] Rho (d) Immune Globulin 2019-02-10 00:00:00 Completed [facility] Rho (d) Immune Globulin 2019-02-10 00:00:00 Completed [facility] Rho (d) Immune Globulin 2019-02-10 00:00:00 Completed [facility] TDAP 2019-01-25 00:00:00 Completed [facility] TDAP 2019-01-25 00:00:00 Completed [facility] TDAP 2019-01-25 00:00:00 Completed [facility] TDAP 2019-01-25 00:00:00 Completed [facility] TDAP 2019-01-25 00:00:00 Completed [facility] TDAP 2019-01-25 00:00:00 Completed [facility] Rho (d) Immune Globulin 2018-12-14 00:00:00 Completed [facility] Rho (d) Immune Globulin 2018-12-14 00:00:00 Completed [facility] Rho (d) Immune Globulin 2018-12-14 00:00:00 Completed [facility] Rho (d) Immune Globulin 2018-12-14 00:00:00 Completed [facility] Rho (d) Immune Globulin 2018-12-14 00:00:00 Completed [facility] Rho (d) Immune Globulin 2018-12-14 00:00:00 Completed [facility] Rho (d) Immune Globulin Unknown Completed [facility] Rho (d) Immune Globulin Unknown Completed [facility] TDAP Unknown Completed [facility] HPV9 Unknown Completed [facility] HPV9 Unknown Completed [facility] Rho (d) Immune Globulin Unknown Completed [facility] Rho (d) Immune Globulin Unknown Completed [facility] TDAP Unknown Completed [facility] HPV9 Unknown Completed [facility] HPV9 Unknown Completed [facility] Rho (d) Immune Globulin Unknown Completed [facility] Rho (d) Immune Globulin Unknown Completed [facility] TDAP Unknown Completed [facility] HPV9 Unknown Completed [facility] HPV9 Unknown Completed [facility] Vital Signs Vital Name Observation Time Observation Value Comments S ource Systolic blood pressure 2023-08-01 18:34:00 147 mm[Hg] [facility] Diastolic blood pressure 2023-08-01 18:34:00 114 mm[Hg] [facility] Heart rate 2023-08-01 18:33:00 98 /min [facility] Body temperature 2023-08-01 18:33:00 36.67 Agnieszka [facility] Respiratory rate 2023-08-01 18:33:00 18 /min [facility] Body height 2023-08-01 18:33:00 154.9 cm [facility] Body weight 2023-08-01 18:33:00 99.066 kg [facility] BMI 2023-08-01 18:33:00 41.27 kg/m2 [facility] Oxygen saturation in Arterial blood by Pulse oximetry 2023-08-01 18:33:00 100 /min [facility] Systolic blood pressure 2023-06-07 02:39:24 147 mm[Hg] [facility] Diastolic blood pressure 2023-06-07 02:39:24 93 mm[Hg] [facility] Heart rate 2023-06-07 02:39:24 83 /min [facility] Body temperature 2023-06-07 02:39:24 37.06 Agnieszka [facility] Respiratory rate 2023-06-07 02:39:24 18 /min [facility] Oxygen saturation in Arterial blood by Pulse oximetry 2023-06-07 02:39:24 100 /min [facility] Body weight 2023-06-06 20:02:00 100.472 kg [facility] BMI 2023-06-06 20:02:00 41.85 kg/m2 [facility] Systolic blood pressure 2023-03-08 17:05:00 134 mm[Hg] [facility] Diastolic blood pressure 2023-03-08 17:05:00 87 mm[Hg] [facility] Heart rate 2023-03-08 17:05:00 85 /min [facility] Body temperature 2023-03-08 17:05:00 36.61 Agnieszka [facility] Respiratory rate 2023-03-08 17:05:00 18 /min [facility] Body height 2023-03-08 17:05:[address] [facility] Body weight 2023-03-08 17:05:00 98.385 kg [facility] BMI 2023-03-08 17:05:00 40.98 kg/m2 [facility] Oxygen saturation in Arterial blood by Pulse oximetry 2023-03-08 17:05:00 98 /min [facility] Systolic blood pressure 2022-07-02 19:30:00 123 mm[Hg] [facility] Diastolic blood pressure 2022-07-02 19:30:00 75 mm[Hg] [facility] Heart rate 2022-07-02 19:30:00 87 /min [facility] Body temperature 2022-07-02 19:30:00 36.94 Agnieszka [facility] Respiratory rate 2022-07-02 19:30:00 18 /min [facility] Body height 2022-07-02 19:30:[address] [facility] Body weight 2022-07-02 19:30:00 106.142 kg [facility] BMI 2022-07-02 19:30:00 42.80 kg/m2 [facility] Procedures Procedure Date / Time Performed Performing Clinician Source POCT SARS-COV-2 ANTIGEN (BINAX NOW) 2023-08-01 19:52:00 Bob Wolff [facility] POCT MOLECULAR STREP 2023-08-01 18:39:00 Unknown, Atte nding [facility] CONSENT/REFUSAL FOR DIAGNOSIS AND TREATMENT 2023-08-01 18:27:12 Doctor Unassigned, Mcbride [facility] ASSIGNMENT OF BENEFITS 2023-08-01 18:21:09 Docto r Unassigned, Mcbride [facility] HB -MATERNAL HEMORRHAGE SCREEN 2023-06-07 00:18:00 Santino Garcia [facility] US FIRST TRIMESTER LESS THAN 14 WEEKS WITH TRANSVAGINAL 2023-06-06 22:08:03 Santino Garcia [facility] POCT TEST 2023-06-06 21:05:00 Santino Garcia [facility] ASSIGNMENT OF BENEFITS 2023-06-06 21:02:40 Docto r Unassigned, Mcbride [facility] COMP. METABOLIC PANEL ([id number]) 2023-06-06 20:17:00 Santino Garcia [facility] TOTAL BETA HCG ASSAY 2023-06-06 20:17:00 Santino Garcia [facility] CBC WITH DIFF 2023-06-06 20:17:00 [facility] URINALYSIS 2023-06-06 20:17:00 Santino Garcia [facility] HB ABO GROUPING 2023-06-06 20:17:00 Santino Garcia [facility] CONSENT/REFUSAL FOR DIAGNOSIS AND TREATMENT 2023-06-06 19:51:11 Doctor Unassigned, Mcbride [facility] POCT TEST 2023-03-08 17:18:00 Cathleen Bearden [facility] POCT SARS-COV-2 ANTIGEN (BINAX NOW) 2023-03-08 17:07:00 Cathleen Bearden [facility] PATIENT FINANCIAL POLICY 2023-03-08 16:58:48 Doctor Unassigned, Mcbride [facility] GARDASIL 9 (HPV 9V) VACCINE 2022-07-02 20:14:37 Maggie Li [facility] Encounters Start Date/Time End Date/Time Encounter Type Admission Type Attending [facility] Care Facility Care Department Encounter ID Source 2023-08-01 13:00:00 2023-08-01 13:52:30 Outpatient R BOB WOLFF [facility] [id number] [facility] 2023-08-01 13:00:00 2023-08-01 13:52:30 Urgent Care Bob Wolff Unknown, Attending [facility] 1.2840.114 350.1.13.10 4.2.7.2.686 [id number] [facility] 2023-08-01 00:00:00 2023-08-01 00:00:00 Orders Only Doctor Unassigned, Mcbride [facility] 1.840.114 350.1.13.10 4.2.7.2.686 [id number] [facility] 2023-06-06 15:04:00 2023-06-06 21:48:00 Emergency X ELEONORAUT, SANTINO [facility] ERT [id number] [facility] 2023-06-06 15:04:00 2023-06-06 21:48:00 Emergency Vasut, Santino J [facility] 1.840.114 350.1.13.10 4.2.7.2.686 [id number] [facility] 2023-06-06 14:00:00 2023-06-06 14:00:00 Outpatient SHANNON VELASQUEZ MARISOL [facility] [id number] [facility] 2023-06-02 00:00:00 2023-06-02 00:00:00 Telephone Adum, Maggie Acuña [facility] 1.2.840.114 350.1.13.10 4.2.7.2.686 [id number] [facility] 2023-03-08 12:00:00 2023-03-08 12:20:00 Urgent Care DontaeCathleen hinojosa Unknown, Attending [facility] [id number] 350.1.13.10 4.2.7.2.686 [id number] [facility] 2023-03-08 12:00:00 2023-03-08 12:00:00 Outpatient R DONTAEGRACIELAMATTHEW AlmodovarTIERRA [facility] [id number] [facility] 2023-03-08 00:00:00 2023-03-08 00:00:00 Orders Only Doctor Unassigned, Mcbride [facility] 1.2.840.114 350.1.13.10 4.2.7.2.686 [id number] [facility] 2023-03-08 00:00:00 2023-03-08 00:00:00 Letter (Out) Matthew Beardentierra [facility] 1.2.840.114 350.1.13.10 4.2.7.2.686 [id number] [facility] 2022-10-01 15:30:00 2022-10-01 15:30:00 Outpatient R MAGGIE LI [facility] [id number] [facility] 2022-07-02 14:30:00 2022-07-02 15:03:56 Outpatient R MAGGIE LI [facility] [id number] [facility] 2022-07-02 14:30:00 2022-07-02 15:03:56 Office Visit Adum, [facility] 1.2.840.114 350.1.13.10 4.2.7.2.686 [id number] [facility] 2022-06-29 14:30:00 2022-06-29 15:06:26 Outpatient R ADPAWEL [facility] [id number] [facility] 2022-06-29 14:30:00 2022-06-29 15:06:26 Outpatient R ADUM, [facility] [id number] [facility] 2022-06-29 14:30:00 2022-06-29 15:06:26 Office Visit Jen Maggie [facility] 1.2840.114 350.1.13.10 4.2.7.2.686 [id number] [facility] 2022-06-29 00:00:00 2022-06-29 00:00:00 Letter (Out) AdMaggie montenegro [facility] 1.2.840.114 350.1.13.10 4.2.7.2.686 [id number] [facility] 2022-06-28 00:00:00 2022-06-28 00:00:00 Orders Only Doctor Unassigned, Mcbride [facility] 1.2840.114 350.1.13.10 4.2.7.2.686 [id number] [facility] 2020-11-20 14:45:00 2020-11-20 14:45:00 Outpatient R NITA DENIS [facility] [id number] [facility] 2020-07-11 00:00:00 2020-07-11 00:00:00 Telephone Nita Denis [facility] AQUATICS SPECIALIST [facility] 1.2840.114 350.1.13.10 4.2.7.2.686 [id number] [facility] 2020-05-30 00:00:00 2020-05-30 00:00:00 Letter (Out) Doctor Unassigned, Mcbride [facility] 1.2.840.114 350.1.13.10 4.2.7.2.686 [id number] [facility] 2018-05-02 10:45:00 2018-05-02 13:43:42 Outpatient BRIGETTE HELTON [facility] [id number] [facility] Results Test Description Test Time Test Comments Results Result Co mments Source [facility] MOLECULAR [id number] 18:43:58* Test Item Value Reference Range Interpretation Comme nts POCT Molecular Strep (test c ode = 83067-8) Positive Negative A Lab Interpretation (test cod e = 74804-4) Abnormal [facility] MOLECULAR [id number] 18:43:58* Test Item Value Reference Range Interpretation Comme nts POCT Molecular Strep (test c ode = 16198-1) Positive Negative A Lab Interpretation (test cod e = 97203-2) [facility] HEMO [id number] 00:35:00 * Test Item Value Reference Range Interpretation Comme nts SCREEN (test code = 846) Negative RHIG REQUIRED? (test code = 1747) 1 Syringe [facility] BETA HCG [id number] 21:11:31* Test Item Value Reference Range Interpretation Comme nts BETA HCG (test code = 8121609197) 60.09 See_Comment [Automated [employer]] The system which generated this result transmitted reference range: Non- female and male patients: <5 mIU/mL. The reference range was not used to interpret this result as normal/abnormal. ROSA M (test code = ROSA M) Gestational Age ?Range (mIU/mL) 1-10 ?Weeks ?62-86297145-76 Weeks ?65200-39310407-49 Weeks ?7651-23174130-02 Weeks ?2643-275095 Biotin has been reported to cause a negative bias, interpret results relative to patient's use of biotin. [id number] 21:05:00* Test Item Value Reference Range Interpretation Comme nts POCT PREG (test code = 1605) Negative On board controls acceptable with C Line (test code = 3574) Yes POCT PREG LOT # (test code = 3574) [id number] POCT PREG TEST DATE ( test code = 3576) 08/05/2024 Lab Interpretation (test cod e = 57813-6) Normal [facility]. METABOLIC PANEL (44469)2023-06-06 20:51:17* Test Item Value Reference Range Interpretation Comme nts NA (test code = 5224609765) 139 mmol/L 135-145 K (test code = 9767921199) 4.0 mmol/L 3.5-5.0 CL (test code = 3839193370) 102 mmol/L 98-108 CO2 TOTAL (test code = 6633443491) 28 mmol/L 23-31 AGAP (test code = 3856968455) 9 2-16 BUN (test code = 1767934262) 10 mg/dL 7-23 GLUCOSE (test code = 2790427214) 94 mg/dL 70-110 CREATININE (test code = 5400554048) 0.55 mg/dL 0.50-1.04 TOTAL BILI (test code = 8203015266) 0.7 mg/dL 0.1-1.1 CALCIUM (test code = 9615331177) 8.5 mg/dL 8.6-10.6 L T PROTEIN (test code = 0181499145) 7.7 g/dL 6.3-8.2 ALBUMIN (test code = 1001914623) 4.0 g/dL 3.5-5.0 ALK PHOS (test code = 9553909950) 63 U/L 34-122 ALTv (test code = 1742-6) 16 U/L 5-35 AST(SGOT) (test code = 2970533000) 17 U/L 13-40 eGFR (test code = 1300537410) 138.2 mL/min/1.73m2 ROSA M (test code = ROSA M) Association of Glomerular Filtration Rate (GFR) and Staging of Kidney Disease* + --+ --+ ------+| GFR (mL/min/1.73 m2) ?| With Kidney Damage ?| ?Without Kidney Damage+ --------+ --------+ +| ?>90 ?| ?Stage one ?| ? Normal ?+ ---+ ---+ -------+| ?60-89 ?| ?Stage two ?| ? Decreased GFR ? + --+ --+ ------+| ?30-59 ?| ?Stage three ?| ? Stage three ? + --+ --+ ------+| ?15-29 ?| ?Stage four ? | ? Stage four ?+ ---+ ---+ -------+| ?<15 (or dialysis) ? ?| ?Stage five ? | ? Stage five ?+ ---+ ---+ -------+ *Each stage assumes the associated GFR level has been in effect for at least three months. ?Stages 1 to 5, with or without kidney disease, indicate chronic kidney disease. Notes: Determination of stages one and two (with eGFR >59mL/min/1.73 m2) requires estimation of kidney damage for at least three months as defined by structural or functional abnormalities of the kidney, manifested by either:Pathological abnormalities or Markers of kidney damage (including abnormalities in the composition of the blood or urine or abnormalities in imaging tests). Lab Interpretation (test code = 57929-2) Abnormal [facility] WITH [id number] 20:35:52* Test Item Value Reference Range Interpretation Comme nts WBC (test code = 6690-2) 9.27 See_Comment [Automated [employer]] The system which generated this result transmitted reference range: 4.30 - 11.10 10*3/?L. The reference range was not used to interpret this result as normal/abnormal. RBC (test code = 789-8) 4.64 See_Comment [Automated [email or web address]] The system which generated this result transmitted reference range: 3.93 - 5.25 10*6/?L. The reference range was not used to interpret this result as normal/abnormal. HGB (test code = 718-7) 13.9 g/dL 11.6-15.0 HCT (test code = 4544-3) 40.9 % 35.7-45.2 MCV (test code = 787-2) 88.1 fL 80.6-95.5 MCH (test code = 785-6) 30.0 pg 25.9-32.8 MCHC (test code = 786-4) 34.0 g/dL 31.6-35.1 RDW-SD (test code = 46093-9) 41.0 fL 39.0-49.9 RDW-CV (test code = 788-0) 12.8 % 12.0-15.5 PLT (test code = 777-3) 271 See_Comment [Automated [employer]] The system which generated this result transmitted reference range: 166 - 358 10*3/?L. The reference range was not used to interpret this result as normal/abnormal. MPV (test code = 09006-4) 9.0 fL 9.5-12.9 L NRBC/100 WBC (test code = 4032842252) 0.0 See_Comment [Automated Event 38 [employer] ssage] The system which generated this result transmitted reference range: 0.0 - 10.0 /100 WBCs. The reference range was not used to interpret this result as normal/abnormal. NRBC x10^3 (test code = 4332817232) See_Comment [Automated [employer]] The system which generated this result transmitted reference range: 10*3/?L. The reference range was not used to interpret this result as normal/abnormal. GRAN MAT (NEUT) % (test code = 770-8) 65.6 % IMM GRAN % (test code = 5507131604) 0.30 % LYMPH % (test code = 736-9) 26.1 % MONO % (test code = 5905-5) 5.6 % EOS % (test code = 713-8) 2.2 % BASO % (test code = 706-2) 0.2 % GRAN MAT x10^3(ANC) (test code = 1601367733) 6.08 10*3/uL 1.88-7.09 IMM GRAN x10^3 (test code = 1279555576) 0.03 10*3/uL 0.00-0.06 LYMPH x10^3 (test code = 731-0) 2.42 10*3/uL 1.32-3.29 MONO x10^3 (test code = 742-7) 0.52 10*3/uL 0.33-0.92 EOS x10^3 (test code = 711-2) 0.20 10*3/uL 0.03-0.39 BASO x10^3 (test code = 704-7) 0.01-0.07 Lab Interpretation (test code = 85481-3) [facility]* Test Item Value Reference Range Interpretation Comme nts POCT PREG (test code = 1605) Negative On board controls acceptable with C Line (test code = 3574) Yes POCT PREG LOT # (test code = 3575) POCT PREG TEST DATE (test code = 3576) ROSA M (test code = ROSA M) accurate developme nt and interpretation of all internal controls Lab Interpretation (test code = 19072-2) Normal [facility] SARS-COV-2 ANTIGEN (BINAX NOW)2023-03-08 17:08:00* Test Item Value Reference Range Interpretation Comme nts POCT SARS-COV-2 ANTIGEN (test code = 84079-5) Not Detected Not Detected On board controls acceptable with C Line (test code = 3574) Yes ROSA M (test code = ROSA M) accurate developme nt and interpretation of all internal controls Lab Interpretation (test code = 98385-0) Normal [facility] Notes Date/Time Note Provider Source 2023-06-06 21:47:16 8458-84-54D93:47:16F ormatting of this note might be different from the original.Pt given printed and verbal discharge instructions regarding vaginal bleeding, encouraged hydration,0 Prescriptions providedPt verbalized understanding of instructions, pt awake alert oriented, resp reg unlabored, skin w/d, color appropriate for race, moves all ext well,pt encouraged to follow up with pcp Advised to seek medical attention for new/prolonged/worsening of symptoms,Symptoms improved. No adverse reaction to meds given in ER noted upon dischargePIV d'cd, dressing to site, catheter in tact.Awake, alert oriented, resp reg unlabored, skin w/d, pt leaving amb with steady gait, in no apparent distress, 62219-3Xjuhzulsq department OwjiHU1950-72-78Q49:48:47[facility] NoteTXT1.2.840.740517.1.13.104 .2.7.2.100055|[id number] lable for patient qbhe29541-4OazkPUCLXBHFYQ97 [address]TXTX[address] 674128CDJOVQHSRIBGBSDXROXQAC44 22-06-07T21:48:471.2.840.25323 0.1.72.3.15|1.2.840.550799.1.1 3.104.2.7.2.727879_[id number] [facility] 2023-06-06 21:30:32 7137-18-07L72:30:32F ormatting of this note might be different from the original.Rhogam given right hip IM. Lot: [id number] Expiration: [id number]. Downtime formed signed and verified with two nurses 19720-2Ikvnfyyfu department GdsmNU9447-78-03I57:31:19[facility] NoteTXT1.2.840.380031.1.13.104 .2.7.2.521358|[id number] lable for patient zwvl49918-9CzmxENIANQINXR97 [address]TXTX[address] 684133SWMJMOCMGDCZIXIPZAFOYN74 22-06-07T21:31:191.2.840.60307 0.1.72.3.15|1.2.840.232544.1.1 3.104.2.7.2.727879_[id number] [facility] 2023-06-06 14:59:53 1216-19-59K48:59:53F ormatting of this note might be different from the original.States she was seen at [facility] on 06/01/2023 for vaginal bleeding and abd pain. States she was told then that she was . States she was told to follow up with her ob but missed her appointment this morning. LMP: "about 4 weeks ago" Living 1 93387-0Kdhanbhdy department Triage douyJU4294-15-14D06:03:23[facility] Triage noteTXT1.2.840.136568.1.13.104 .2.7.2.216586|[id number] lable for patient cdop64362-3Yycdccxet department OyybNJ936377495Vdhws L Barker RN[address] OyjfDfkrpnuzwFbcpfcoahHIMY1443 124286ISXIVBMZGLPJZBKGAYVVAI31 22-06-075:03:231.2.840.42865 0.1.72.3.15|1.2.840.469832.1.1 3.104.2.7.2.727879_[id number] Saloni Martinez RN 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 female with persistent vaginal bleeding. Recently seen at [facility] ER and told possible ectopic and to f/u with [facility]. Patient missed appointment and present here with persistent vaginal bleeding and mild abdominopelvic cramping. 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 Vaping Use Never used Alcohol Use No. Drug Use No. Sexual Activity Sexually active; Partners: Male. Comments: nexplanon Past Surgical History:Past Surgical History: Procedure Laterality Date SECTION N/A 03/04/2018 Surgeon: Soham Ricardo; Location: Labor and Delivery - [place] SECTION N/A 02/10/2019 Surgeon: Jeovanny Longo MD; Location: Labor and Delivery - [place] WOUND DEBRIDEMENT N/A 03/17/2018 Surgeon: Silvio Willson MD; Location: Labor and Delivery - [place] Review of Systems: Review of Systems Constitutional: Negative for chills and fever. HENT: Negative. Eyes: Negative. Respiratory: Negative. Breasts: Negative. Cardiovascular: Negative. Gastrointestinal: Positive for abdominal pain and nausea. Genitourinary: Positive for vaginal bleeding and pelvic pain. Negative for urgency and decreased urine volume. Musculoskeletal: Negative. Skin: Negative. Neurological: Negative. Psychiatric/Behavioral: Negative. Endocrine: Endocrine negativePhysical Exam: ED Triage Vitals [06/06/23 1502] Weight 100.5 kg (221 lb 8 oz) Actual or estimated Actual Height BP (!) 143/103 Pulse 95 Resp 16 Temp 37 ?C (98.6 ?F) Temp source Oral SpO2 98 % Measured on Room air Physical ExamVitals and nursing note reviewed. Constitutional: General: She is not in acute distress. Appearance: Normal appearance. She is not ill-appearing, toxic-appearing or diaphoretic. HENT: Head: Normocephalic and atraumatic. Nose: Nose normal. Mouth/Throat: Mouth: Mucous membranes are moist. Eyes: Pupils: Pupils are equal, round, and reactive to light. Cardiovascular: Rate and Rhythm: Normal rate. Pulses: Normal pulses. Pulmonary: Effort: Pulmonary effort is normal. No respiratory distress. Abdominal: General: There is no distension. Palpations: Abdomen is soft. There is no mass. Tenderness: There is no abdominal tenderness. There is no right CVA tenderness, left CVA tenderness, guarding or rebound. Hernia: No hernia is present. Skin: General: Skin is warm. Capillary Refill: Capillary refill takes less than 2 seconds. Neurological: General: No focal deficit present. Mental Status: She is alert. Psychiatric: Mood and Affect: Mood normal. Radiology:US FIRST TRIMESTER LESS THAN 14 WEEKS WITH TRANSVAGINAL Final Result Exam: US FIRST TRIMESTER LESS THAN 14 WEEKS WITH TRANSVAGINAL, 06/06/2023 4:30 PM. Ordering Physician: SANTINO GARCIA. History: , vaginal bleeding. . Technique: US FIRST TRIMESTER LESS THAN 14 WEEKS WITH TRANSVAGINAL. Grayscale and color Doppler early ultrasound images of the pelvis were obtained transabdominally and transvaginally. Technical Quality: Adequate. COMPARISON: None. Findings: Uterus measures 10.4 x 3.4 x 4.2 cm. Small amount of simple fluid in the endometrial canal. Small amount of complex fluid in the endocervical canal. Intrauterine gestational sac and pole are seen on image 49, the pole measures 0.3 cm, and the gestational sac measures 1.4 x 0.7 cm. No color Doppler nor M-mode imaging of the pole was submitted for interpretation at the time of this dictation. Right ovary measures 4.0 x 2.1 x 2.3 cm. Left ovary measures 2.0 x 2.2 x 1.3 cm. Color Doppler arterial and venous flow are seen in both ovaries. Possible solid right ovarian corpus No pelvic free fluid. IMPRESSION Impression: 1. Single intrauterine gestation of indeterminate viability. 2. Small amount of simple fluid in the endometrial canal. Small amount of mildly complex fluid in the endocervical canal. RL: 460 End of report. Lab Results:Lab Results CBC WITH DIFF - Abnormal Result Value Ref Range WBC 9.27 4.30 - 11.10 10*3/?L RBC 4.64 3.93 - 5.25 10*6/?L HGB 13.9 11.6 - 15.0 g/dL HCT 40.9 35.7 - 45.2 % MCV 88.1 80.6 - 95.5 fL MCH 30.0 25.9 - 32.8 pg MCHC 34.0 31.6 - 35.1 g/dL RDW-SD 41.0 39.0 - 49.9 fL RDW-CV 12.8 12.0 - 15.5 % PLT 271 166 - 358 10*3/?L MPV 9.0 (*) 9.5 - 12.9 fL NRBC/100 WBC 0.0 0.0 - 10.0 /100 WBCs NRBC x10^3 <0.01 10*3/?L GRAN MAT (NEUT) % 65.6 % IMM GRAN % 0.30 % LYMPH % 26.1 % MONO % 5.6 % EOS % 2.2 % BASO % 0.2 % GRAN MAT x10^3(ANC) 6.08 1.88 - 7.09 10*3/uL IMM GRAN x10^3 0.03 0.00 - 0.06 10*3/uL LYMPH x10^3 2.42 1.32 - 3.29 10*3/uL MONO x10^3 0.52 0.33 - 0.92 10*3/uL EOS x10^3 0.20 0.03 - 0.39 10*3/uL BASO x10^3 <0.03 0.01 - 0.07 10*3/uL COMP. METABOLIC PANEL (51189) - Abnormal NA 139 135 - 145 mmol/L K 4.0 3.5 - 5.0 mmol/L CL 102 98 - 108 mmol/L CO2 TOTAL 28 23 - 31 mmol/L AGAP 9 2 - 16 BUN 10 7 - 23 mg/dL GLUCOSE 94 70 - 110 mg/dL CREATININE 0.55 0.50 - 1.04 mg/dL TOTAL BILI 0.7 0.1 - 1.1 mg/dL CALCIUM 8.5 (*) 8.6 - 10.6 mg/dL T PROTEIN 7.7 6.3 - 8.2 g/dL ALBUMIN 4.0 3.5 - 5.0 g/dL ALK PHOS 63 34 - 122 U/L ALTv 16 5 - 35 U/L AST(SGOT) 17 13 - 40 U/L eGFR 138.2 mL/min/1.73m2 URINALYSIS - Abnormal APPEARANCE Cloudy (*) Clear COLOR Red (*) Yellow PH 6.0 4.8 - 8.0 SP GRAVITY 1.021 1.003 - 1.030 GLU U QUAL Normal Normal BLOOD 3+ (*) Negative KETONES Negative Negative PROTEIN 30 mg/dL (*) Negative UROBILIN 2.0 mg/dL (*) Normal BILIRUBIN Negative Negative NITRITE Negative Negative LEUK RASHEED Negative Negative RBC/HPF >182 (*) 0 - 3 HPF WBC/HPF 40 (*) 0 - 5 HPF BACTERIA Few (*) Negative MUCOUS Slight (*) Negative LPF SQ EPITH 14 HPF YEAST BUD 3 (*) <=1 HPF POCT TEST - Normal POCT PREG Negative On board controls acceptable with C Line Yes POCT PREG LOT # [id number] POCT PREG TEST DATE 08/05/2024 TYPE AND SCREEN ABO & RH O Negative IAT Negative TOTAL BETA HCG ASSAY BETA HCG 60.09 Non- female and male patients: <5 mIU/mL RHO (D) IMMUNE GLOBULIN EKG:If EKG completed, see Procedure Note. Orders and Treatments:Orders Placed This Encounter Procedures US FIRST TRIMESTER LESS THAN 14 WEEKS WITH TRANSVAGINAL CBC WITH DIFF COMP. METABOLIC PANEL (87925) Type and Screen - ONCE Routine URINALYSIS TOTAL BETA HCG ASSAY POCT TEST RHO (D) IMMUNE GLOBULIN Orders Placed This Encounter Medications rho(D) immune globulin (RHOGAM) syringe 300 mcg First Provider Eval:ED Events None No notes of EC Admission Criteria type on file.ED COURSEDiagnosis/Impression as of 06/06/23 1856 Vagina bleeding Procedures: ProceduresMDM:Medical Decision MakingAmount and/or Complexity of Data ReviewedLabs: ordered.Radiology: ordered.RiskPrescription drug management.A) Likely Missed Ab , RH NegativeDisposition/Condition: Rhogam in ED, Follow-up with [facility] Clinic in 2 days for further evaluation and care/recommendations, 1st Trimester ER warnings. ED Disposition None Discharge Medications:Patient's Medications START taking these medications No medications on file CONTINUE taking these medications which have NOT CHANGED AZITHROMYCIN (ZITHROMAX Z-DEBI) 250 MG TABLET Take 1 tablet by mouth in the morning. METHYLPREDNISOLONE (MEDROL, DEBI,) 4 MG TABLETS Take by mouth SEE-INSTRUCTIONS. follow package directions NITROFURANTOIN&NIT. MACROCRYST 100 MG CAPSULE TAKE 1 CAPSULE BY MOUTH EVERY 12 HOURS FOR 7 DAYS START taking Modified Medications as Prescribed No medications on file STOP taking these medications No medications on file Follow-up: [facility] clinic in 2-3 days. Electronically signed by: Santino Garcia MD06/06/23 1859 75610-6Dfsnpemku Emergency department RuptGB1407-52-55C17:59:24Physi varghese Emergency department NoteTXT1.2.840.551699.1.13.104 .2.7.2.709316|[id number] lable for patient pykc24304-5Ofgqtkmjr department NoteLNEMCARE EMERGENCY PHYSICIAN STAFFEMTHREE [facility] EM[facility] PHYSIC[facility] STAFF[address]TXTX[address] 092022OZUBQSLBSWWVBZVZHRNXQF16 22-06-078:59:241.2.840.51526 0.1.72.3.15|1.2.840.720529.1.1 3.104.2.7.2.727879_[id number] [facility] STAFF [facility] 2023-06-02 15:05:06 5475-78-05R70:05:06F ormatting of this note might be different from the original.Name and verified. Sent pt to [facility] to schedule.AMI CID RN 06/02/2023 3:05 PM 38767-2Xnbdohtwk encounter QeyyOM8231-01-06T11:05:30Telep ramón encounter NoteTXT1.2.840.232173.1.13.104 .2.7.2.653547|[id number] lable for patient uomx74104-0WbcnPQ558112247Owbq tahira Cid RNUT[address]TXTX[address] 532296MFFTDRNUKSBWLWRBWKIKUO46 22-06-03T15:05:301.2.840.15240 0.1.72.3.15|1.2.840.388190.1.1 3.104.2.7.2.727879_[id number] Ami Dougie Jose Roberto RANGEL [facility] 2023-06-02 12:55:42 7276-90-60J12:55:42F ormatting of this note might be different from the original.Patient was seen in ER in [place] 06/01/23. Patient did not know she was . She had abnormal bleeding and pain. She went to ER in [place]. She lost baby at 3 weeks. Patient is wanting to know if she should come in clinic to be checked out or should she wait. Patient is still having bleeding. Mother number is [id number] [id number] signed by Remedios Meadows at 06/02/2023 12:59 PM NFF52224-4Rbimcltve encounter HmpdCV2404-42-36F83:59:59Telep ramón encounter NoteTXT1.2.840.100177.1.13.104 .2.7.2.813316|[id number] lable for patient [id number] ica N Wilson[address] XpnlUojfanycoHilinhljcEKCT8659 [id number] 22-06-03T12:59:591.2.840.48275 0.1.72.3.15|1.2.840.902442.1.1 3.104.2.7.2.727879_[id number] Remedios Meadows [facility]
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
[2023-10-06] MEDS ORDERED: ACETAMINOPHEN 500 MG TAB ONE (20:11)
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
[2023-10-06 21:08] VITALS: TEMP 97.4
[2023-10-06 21:12] VITALS: BP 130/93; O2SAT 100
== END 2023-10-06 21:02 | disposition home or self-care (01) ==
LOC: ER 18:34
DX: M54.2 Cervicalgia (principal); M25.512 Pain in left shoulder; V59.49XA Driver of pick-up truck or van injured in collision with other motor vehicles in traffic accident, initial encounter; Z88.0 Allergy status to penicillin
CPT/HCPCS: 70450; 72125; 99283

== ENCOUNTER 2025-08-14 14:36 | Emergency (ER) | payer BC, OTHER ==
--- OUTSIDE RECORDS SUMMARY | 2025-08-14 14:40 | XMS REPORT | Continuity of Care Document ---
Author Name Unknown Address [address] [facility] [address] [place] [address] [facility] Address [address] [facility] [address] [place] [address] Care Team Providers Care Headmaster/Mistress Name Role Phone PCP, PATIENT DOES NOT HAVE A Primary Care Physic darrin Unavailable MAGGIE LI Attending Clinician Unavailable MAGGIE LI Attending Clinician Unavailable Doctor Unassigned, Sabinal Attending Clinician U Yuki Joseph MD Attending Clinician [phone] WILL ROSAS Attending Clinician Unavailable WILL ROSAS Attending Clinician Unavailable Roland Simon Attending Clinician [phone] BOB WOLFF Attending Clinician Unavailable Bob Burgos Attending Clinician [phone] Unknown, Attending Attending Clinician Unavailab bran Doctor Unassigned, Sabinal Attending Clinician U SANTINO Severino Attending Clinician Unavailable Santino Garcia MD Attending Clinician [phone] SHANNON FREGOSO Attending Clinician SHANNON Espinal Attending Clinician Cathleen Gentile Attending Clinician [phone] CATHLEEN BEARDEN Attending Clinician Unavailable NITA DENIS Attending Clinician UnavailNita Beasley Attending Clinician [phone] BRIGETTE BETHEA Attending Clinician Unavailable WILL ROSAS Admitting Clinician Unavailable SANTINO GARCIA Admitting Clinician Unavailable Payers Payer Name Policy Type Policy Number Effective Date Expirati on Date Source [employer] [place] - OUT OF STATE [id number] 2021 00:00:00 [facility] [id number] 2017 00:00:00 2018 00:00:00 AETBRITTANY O [id number] 2013 00:00:00 2018 00:00:00 Problems Condition Name Condition Details Condition Category Status Onset Date Resolution Date Last Treatment Date Treating Clinician Comments Source Morbid obesity with body mass index of 40.0-49.9 Morbid obesity with body mass index of 40.0-49.9 Disease Active 8 00:00: 00 [facility] Obesity (BMI 30-39.9) Obesity (BMI 30-39.9) Disease Active 4-13 00:00: 00 [facility] S/P section S/P section Disease Active 2017-10 0-11 00:00: 00 [facility] Family history of cleft lip and palate-mat ernal cousin Family history of cleft lip and palate-mat ernal cousin Disease Active 2017-10 0-11 00:00: 00 [facility] History of depression History of depression Disease Active 6-03 00:00: 00 [facility] Family history of congenital anomalies Family history of congenital anomalies Disease Active 1-04 00:00: 00 Overview: Formattin g of this note might be different from the original. 1. 1st cousin maternal side with cleft palate, 2. 1st cousin maternal side born with 6 toes on both feet [facility] Nexplanon in place Nexplanon in place Disease Resolve d 6-25 00:00: 00 2023-06-06 00:00:00 2023-06-06 13:51:44 [facility] depression depression Disease Resolve d 5-06 00:00: 00 2019-04-17 00:00:00 2019-04-17 11:20:47 [facility] Separation of wound with drainage, Separation of wound with drainage, Disease Resolve d 2018-0 4-19 00:00: 00 2019-04-17 00:00:00 2019-04-17 11:20:50 [facility] complicati on complicati on Disease Resolve d 2018-0 4-19 00:00: 00 2019-04-17 00:00:00 2019-04-17 11:20:49 [facility] section wound seroma, section wound seroma, Disease Resolve d 2018-0 4-19 00:00: 00 2019-04-17 00:00:00 2019-04-17 11:20:40 [facility] complicati on complicati on Disease Resolve d 2018-0 4-19 00:00: 00 2019-04-17 00:00:00 2019-04-17 11:20:49 [facility] Abnormal maternal glucose tolerance, antepartum Abnormal maternal glucose tolerance, antepartum Disease Resolve d 2017-0 9-28 00:00: 00 2019-03-05 00:00:00 2019-03-05 10:30:07 [facility] 36 weeks gestation of 36 weeks gestation of Disease Resolve d 2018-0 4-13 00:00: 00 2019-03-02 00:00:00 2019-03-02 16:14:13 [facility] Supervisio n of high risk in third trimester Supervisio n of high risk in third trimester Disease Resolve d 2017-10 0-11 00:00: 00 2019-03-02 00:00:00 2019-03-02 16:14:39 [facility] History of cervical incompeten ce in , currently History of cervical incompeten ce in , currently Disease Resolve d 2017-10 0-11 00:00: 00 2019-03-02 00:00:00 2019-03-02 16:14:22 [facility] History of placenta abruption History of placenta abruption Disease Resolve d 2017- 0-11 00:00: 00 2019-03-02 00:00:00 2019-03-02 16:14:26 [facility] Supervisio n of high-risk Supervisio n of high-risk Disease Resolve d 9 00:00: 00 2019-03-02 00:00:00 2019-03-02 16:14:40 [facility] Short interval between pregnancie s affecting , antepartum Short interval between pregnancie s affecting , antepartum Disease Resolve d 9 00:00: 00 2019-03-02 00:00:00 2019-03-02 16:14:38 [facility] Nausea and vomiting during prior to 22 weeks gestation Nausea and vomiting during prior to 22 weeks gestation Disease Resolve d 9 00:00: 00 2019-03-02 00:00:00 2019-03-02 16:14:28 [facility] Rh negative state in antepartum period Rh negative state in antepartum period Disease Resolve d 1-05 00:00: 00 2019-03-02 00:00:00 2019-03-02 16:14:33 [facility] Obesity in , antepartum Obesity in , antepartum Disease Resolve d 1-04 00:00: 00 2019-03-02 00:00:00 2019-03-02 16:14:29 [facility] History of section, classical History of section, classical Disease Resolve d 0 5-17 00:00: 00 2018-08-10 00:00:00 2018-08-10 08:36:38 [facility] Disruption of wound, Disruption of wound, Disease Resolve d 0 6-03 00:00: 00 2018-07-27 00:00:00 2018-07-27 10:25:19 [facility] Superficia l incisional surgical site infection Superficia l incisional surgical site infection Disease Resolve d 0 5-19 00:00: 00 2018-07-27 00:00:00 2018-07-27 10:24:52 [facility] Complicati on of puerperium Complicati on of puerperium Disease Resolve d 0 5-19 00:00: 2018-07-27 00:00:00 2018-07-27 10:25:20 [facility] Complicati on of puerperium Complicati on of puerperium Disease Resolve d 2017-0 5-19 00:00: 00 2018-07-27 00:00:00 2018-07-27 10:25:20 [facility] Wound, surgical, infected Wound, surgical, infected Disease Resolve d 2017-0 5-18 00:00: 00 2018-07-27 00:00:00 2018-07-27 10:25:57 [facility] cellulitis after surgery Wound cellulitis after surgery Disease Resolve d 0 5-17 00:00: 00 2018-07-27 00:00:00 2018-07-27 10:25:55 [facility] labor labor Disease Resolve d 0 5-05 00:00: 00 2018-07-27 00:00:00 2018-07-27 10:25:04 [facility] Short cervical length during , second trimester Short cervical length during , second trimester Disease Resolve d 0 4-09 00:00: 00 2018-07-27 00:00:00 2018-07-27 10:25:28 [facility] Abnormal maternal glucose tolerance, antepartum Abnormal maternal glucose tolerance, antepartum Disease Resolve d 2017-0 1-17 00:00: 00 2018-07-27 00:00:00 2018-07-27 10:25:23 [facility] Nausea and vomiting during prior to 22 weeks gestation Nausea and vomiting during prior to 22 weeks gestation Disease Resolve d 0 1-17 00:00: 00 2018-07-27 00:00:00 2018-07-27 10:25:07 [facility] Subchorion ic hemorrhage in first trimester Subchorion ic hemorrhage in first trimester Disease Resolve d 0 1-10 00:00: 00 2018-07-27 00:00:00 2018-07-27 10:24:53 [facility] High risk teen , antepartum High risk teen , antepartum Disease Resolve d 2017-0 1-04 00:00: 00 2018-07-27 00:00:00 2018-07-27 10:26:36 [facility] 23 weeks gestation of 23 weeks gestation of Disease Resolve d 2017-0 5-05 00:00: 2018-03-20 00:00:00 2018-03-20 05:12:10 [facility] Vaginal spotting Vaginal spotting Disease Resolve d 2017-0 5-05 00:00: 00 2018-03-20 00:00:00 2018-03-20 05:12:10 [facility] Premature cervical dilation in second trimester Premature cervical dilation in second trimester Disease Resolve d 2017-0 5-05 00:00: 2018-03-20 00:00:00 2018-03-20 05:12:10 [facility] Vaginal bleeding in , first trimester Vaginal bleeding in , first trimester Disease Resolve d 2017-0 1-04 00:00: 00 2018-01-31 00:00:00 2018-01-31 10:11:47 [facility] Nausea and vomiting in prior to 22 weeks gestation Nausea and vomiting in prior to 22 weeks gestation Disease Resolve d 0 1-04 00:00: 00 2018-01-03 00:00:00 2018-01-03 12:24:54 [facility] Allergies, Adverse Reactions, Alerts Allergy Name Allergy Type Status Severity Reaction(s) Onset Date Inactive Date Treating Clinician Comments Source PENICILL IN DRUG INGREDI Active Hives 2014-10 00:00: 00 [facility] Penicill in Propensi ty to adverse reaction s Active Hives 2014-10 00:00: 00 [facility] Social History Social Habit Start Date Stop Date Quantity Comments Source [facility] Sexual orientation U niversity [facility] Not [facility] History of Occupation [facility] Alcoholic beverage intake 2023-08-01 00:00:00 2023-08-01 00:00:00 Current non-drinker of alcohol (finding) [facility] Alcohol intake 2023-08-01 00:00:00 2023-08-01 00:00:00 Current non-drinker of alcohol (finding) [facility] Exposure to SARS-CoV-2 (event) 2023-02-26 00:00:00 2023-03-08 12:04:00 Not sure [facility] Tobacco use and exposure 2022-06-29 00:00:00 2022-06-29 00:00:00 Smokeless tobacco non-user [facility] History of Social function 2019-05-10 00:00:00 2019-05-10 00:00:00 [facility] Sex assigned at 2000 00:00:00 2000 00:00:00 [facility] Smoking Status Start Date Stop Date Source Never smoked tobacco [facility] Medications Ordered Medication Name Filled Medication Name Start Date Stop Date Current Medication? Ordering Clinician Indication Dosage Frequency Signature (SIG) Comments Components Source iopamidol (ISOVUE 370-500 mL) injection 100 mL iopamidol (ISOVUE 370-500 mL) injection 100 mL 07-17 19:01: 00 07-17 19:01 :00 Yes [id number] 100mL 100 mL, Intravenou s, ONCE, 1 dose, On Tue07/17/25 at 1415, Routine [facility] NaCl 0.9% (NS) bolus infusion 1,000 mL 07-17 18:30: 00 07-17 21:24 :00 No 1000mL at 999 mL/hr, 1,000 mL, IV Infusion, ONCE, 1 dose, On Tue07/17/25 at 1330, NIKOLAY [facility] ketorolac (TORADOL) 30 mg/mL (1 mL) injection 15 mg 07-17 18:15: 00 07-17 18:27 :00 No 15mg 15 mg, Slow IV Push, ONCE, 1 dose, On Tue07/17/25 at 1315, Routine [facility] ondansetron (ZOFRAN (PF)) injection 4 mg ondansetron (ZOFRAN (PF)) injection 4 mg 07-17 17:30: 00 07-17 18:29 :00 Yes 4mg 4 mg, Slow IV Push, ONCE, 1 dose, On Tue07/17/25 at 1230, Administer over 2-5 Minutes, 2 mL [facility] ketorolac (TORADOL) injection 30 mg 05-30 06:30: 00 05-30 05:39 :00 No 30mg 30 mg, Slow IV Push, ONCE, 1 dose, On Mariah 05/30/25 at 0130, Routine [facility] naproxen 375 mg tablet 05-30 00:00: 00 Yes [id number] 100 375mg Take 1 tablet by mouth in the morning and 1 tablet in the evening. Take with meals. [facility] azithromyci n 500 mg tablet 2022-10 00:00: 00 08-07 04:59 :00 No [id number] 500mg Take 1 tablet by mouth in the morning for 5 days. [facility] rho(D) immune globulin (RHOGAM) syringe 300 mcg 06-06 21:16: 59 Yes 300ug 300 mcg, Intramuscu lar, ONCE, For 1 dose, Conditiona l, Routine [facility] Nitrofurant oin&Nit. Macrocryst 100 mg capsule 06-01 00:00: 00 Yes TAKE 1 CAPSULE BY MOUTH EVERY 12 HOURS FOR 7 DAYS [facility] azithromyci n (ZITHROMAX Z-DEBI) 250 mg tablet 03-08 00:00: 00 Yes [id number] 250mg Take 1 tablet by mouth in the morning. [facility] methylPREDN ISolone (MEDROL, DEBI,) 4 mg tablets 03-08 00:00: 00 Yes [id number] Take by mouth SEE-INSTRU CTIONS. follow package directions [facility] promethazin e-dextromet horphan 6.25-15 mg/5 mL syrup 03-08 00:00: 00 03-19 04:59 :00 No [id number] 5mL Take 5 mL by mouth 4 (four) times daily for 10 days. [facility] No known medications 07-02 14:31: 10 No No known medication s [facility] Immunizations Ordered Immunization Name Filled Immunization Name Date Status Comments Source HPV9 2022-07-02 00:00:00 Completed [facility] HPV9 2022-07-02 00:00:00 Completed [facility] HPV9 2022-07-02 00:00:00 Completed [facility] HPV9 2022-07-02 00:00:00 Completed [facility] HPV9 2022-07-02 00:00:00 Completed [facility] HPV9 2022-07-02 00:00:00 Completed [facility] HPV9 2022-07-02 00:00:00 Completed [facility] HPV9 2019-04-17 00:00:00 Completed [facility] HPV9 2019-04-17 00:00:00 Completed [facility] HPV9 2019-04-17 00:00:00 Completed [facility] HPV9 2019-04-17 00:00:00 Completed [facility] HPV9 2019-04-17 00:00:00 Completed [facility] HPV9 2019-04-17 00:00:00 Completed [facility] HPV9 2019-04-17 00:00:00 Completed [facility] Rho (d) Immune Globulin 2019-02-10 00:00:00 Completed [facility] Rho (d) Immune Globulin 2019-02-10 00:00:00 Completed [facility] Rho (d) Immune Globulin 2019-02-10 00:00:00 Completed [facility] Rho (d) Immune Globulin 2019-02-10 00:00:00 Completed [facility] Rho (d) Immune Globulin 2019-02-10 00:00:00 Completed [facility] Rho (d) Immune Globulin 2019-02-10 00:00:00 Completed [facility] Rho (d) Immune Globulin 2019-02-10 00:00:00 Completed [facility] TDAP 2019-01-25 00:00:00 Completed [facility] TDAP 2019-01-25 00:00:00 Completed [facility] TDAP 2019-01-25 00:00:00 Completed [facility] TDAP 2019-01-25 00:00:00 Completed [facility] TDAP 2019-01-25 00:00:00 Completed [facility] TDAP 2019-01-25 00:00:00 Completed [facility] TDAP 2019-01-25 00:00:00 Completed [facility] Rho (d) Immune Globulin 2018-12-14 00:00:00 Completed [facility] Rho (d) Immune Globulin 2018-12-14 00:00:00 Completed [facility] Rho (d) Immune Globulin 2018-12-14 00:00:00 Completed [facility] Rho (d) Immune Globulin 2018-12-14 00:00:00 Completed [facility] Rho (d) Immune Globulin 2018-12-14 00:00:00 Completed [facility] Rho (d) Immune Globulin 2018-12-14 00:00:00 Completed [facility] Rho (d) Immune Globulin 2018-12-14 00:00:00 Completed [facility] Rho (d) Immune Globulin Unknown Completed [facility] TDAP Unknown Completed [facility] HPV9 Unknown Completed [facility] Rho (d) Immune Globulin Unknown Completed [facility] TDAP Unknown Completed [facility] HPV9 Unknown Completed [facility] Vital Signs Vital Name Observation Time Observation Value Comments S ource Systolic blood pressure 2025-07-17 21:29:00 153 mm[Hg] [facility] Diastolic blood pressure 2025-07-17 21:29:00 93 mm[Hg] [facility] Heart rate 2025-07-17 21:29:00 85 /min [facility] Body temperature 2025-07-17 21:29:00 36.67 Agnieszka [facility] Respiratory rate 2025-07-17 21:29:00 18 /min [facility] Oxygen saturation in Arterial blood by Pulse oximetry 2025-07-17 21:29:00 98 /min [facility] Body weight 2025-07-17 15:58:00 90.719 kg [facility] BMI 2025-07-17 15:58:00 37.79 kg/m2 [facility] Body height 2025-07-17 15:57:00 154.9 cm [facility] Systolic blood pressure 2025-05-30 06:45:00 138 mm[Hg] [facility] Diastolic blood pressure 2025-05-30 06:45:00 99 mm[Hg] [facility] Heart rate 2025-05-30 06:45:00 74 /min Unive [facility] Body temperature 2025-05-30 06:45:00 35.83 Agnieszka [facility] Respiratory rate 2025-05-30 06:45:00 18 /min [facility] Oxygen saturation in Arterial blood by Pulse oximetry 2025-05-30 06:45:00 99 /min [facility] Body height 2025-05-30 05:33:00 154.9 cm [facility] Body weight 2025-05-30 05:33:00 97.523 kg [facility] BMI 2025-05-30 05:33:00 40.62 kg/m2 [facility] Systolic blood pressure 2023-08-01 18:34:00 147 mm[Hg] [facility] Diastolic blood pressure 2023-08-01 18:34:00 114 mm[Hg] [facility] Heart rate 2023-08-01 18:33:00 98 /min Unive [facility] Body temperature 2023-08-01 18:33:00 36.67 Agnieszka [facility] Respiratory rate 2023-08-01 18:33:00 18 /min [facility] Body height 2023-08-01 18:33:00 154.9 cm [facility] Body weight 2023-08-01 18:33:00 99.066 kg [facility] BMI 2023-08-01 18:33:00 41.27 kg/m2 [facility] Oxygen saturation in Arterial blood by Pulse oximetry 2023-08-01 18:33:00 100 /min [facility] Systolic blood pressure 2023-06-07 02:39:24 147 mm[Hg] [facility] Diastolic blood pressure 2023-06-07 02:39:24 93 mm[Hg] [facility] Heart rate 2023-06-07 02:39:24 83 /min Unive [facility] Body temperature 2023-06-07 02:39:24 37.06 Agnieszka [facility] Respiratory rate 2023-06-07 02:39:24 18 /min [facility] Oxygen saturation in Arterial blood by Pulse oximetry 2023-06-07 02:39:24 100 /min [facility] Body weight 2023-06-06 20:02:00 100.472 kg [facility] BMI 2023-06-06 20:02:00 41.85 kg/m2 [facility] Systolic blood pressure 2023-03-08 17:05:00 134 mm[Hg] [facility] Diastolic blood pressure 2023-03-08 17:05:00 87 mm[Hg] [facility] Heart rate 2023-03-08 17:05:00 85 /min Unive [facility] Body temperature 2023-03-08 17:05:00 36.61 Agnieszka [facility] Respiratory rate 2023-03-08 17:05:00 18 /min [facility] Body height 2023-03-08 17:05:00 154.9 cm [facility] Body weight 2023-03-08 17:05:00 98.385 kg [facility] BMI 2023-03-08 17:05:00 40.98 kg/m2 [facility] Oxygen saturation in Arterial blood by Pulse oximetry 2023-03-08 17:05:00 98 /min [facility] Systolic blood pressure 2022-07-02 19:30:00 123 mm[Hg] [facility] Diastolic blood pressure 2022-07-02 19:30:00 75 mm[Hg] [facility] Heart rate 2022-07-02 19:30:00 87 /min [facility] Body temperature 2022-07-02 19:30:00 36.94 Agnieszka [facility] Respiratory rate 2022-07-02 19:30:00 18 /min [facility] Body height 2022-07-02 19:30:00 157.5 cm [facility] Body weight 2022-07-02 19:30:00 106.142 kg [facility] BMI 2022-07-02 19:30:00 42.80 kg/m2 [facility] Procedures Procedure Date / Time Performed Performing Clinician Source CT ABDOMEN PELVIS W CONTRAST 2025-07-17 19:06:13 Phan Solano [facility] POCT TEST 2025-07-17 18:23:00 Phan Solano [facility] URINALYSIS 2025-07-17 18:21:00 Phan Solano [facility] EXTRA TUBE URINE CULTURE 2025-07-17 18:21:00 Keria Rosas [facility] LACTIC ACID WITH 2 HOUR REFLEX 2025-07-17 18:05:00 Katharine Solanoshua [facility] LIPASE 2025-07-17 18:04:00 Katharine Solanoshua [facility] COMP. METABOLIC PANEL ([id number]) 2025-07-17 18:04:00 Katharine Solanoshua [facility] SEDIMENTATION RATE 2025-07-17 18:04:00 Phan Solano [facility] CBC WITH DIFF 2025-07-17 18:04:00 Phan Solano [facility] EXTRA TUBE LT. BLUE 2025-07-17 18:04:00 Tegan Rosas [facility] EXTRA TUBE DK. GREEN 2025-07-17 18:04:00 Marni Rosas ch [facility] TEST, SERUM 2025-05-30 05:35:00 Eris Kowalski [facility] COMP. METABOLIC PANEL ([id number]) 2025-05-30 05:35:00 Roland Kowalski [facility] CBC WITH DIFF 2025-05-30 05:35:00 Roland Kowalski [facility] URINALYSIS 2025-05-30 05:35:00 Roland Kowalski [facility] POCT TEST 2025-05-30 05:35:00 Roland Kowalski [facility] POCT SARS-COV-2 ANTIGEN (BINAX NOW) 2023-08-01 19:52:00 Bob Wolff [facility] POCT MOLECULAR STREP 2023-08-01 18:39:00 Unknown, Attedu cortes [facility] CONSENT/REFUSAL FOR DIAGNOSIS AND TREATMENT 2023-08-01 18:27:12 Doctor Unassigned, Sabinal [facility] ASSIGNMENT OF BENEFITS 2023-08-01 18:21:09 Docto r Unassigned, Sabinal [facility] HB -MATERNAL HEMORRHAGE SCREEN 2023-06-07 00:18:00 Santino Garcia [facility] US FIRST TRIMESTER LESS THAN 14 WEEKS WITH TRANSVAGINAL 2023-06-06 22:08:03 Santino Garcia [facility] POCT TEST 2023-06-06 21:05:00 Santino Garcia [facility] ASSIGNMENT OF BENEFITS 2023-06-06 21:02:40 Docto r Unassigned, Sabinal [facility] COMP. METABOLIC PANEL ([id number]) 2023-06-06 20:17:00 Santino Garcia [facility] TOTAL BETA HCG ASSAY 2023-06-06 20:17:00 Santino Garcia [facility] CBC WITH DIFF 2023-06-06 20:17:00 Santino Garcia [facility] URINALYSIS 2023-06-06 20:17:00 Santino Garcia [facility] HB ABO GROUPING 2023-06-06 20:17:00 Santino Garcia [facility] CONSENT/REFUSAL FOR DIAGNOSIS AND TREATMENT 2023-06-06 19:51:11 Doctor Unassigned, Sabinal [facility] POCT TEST 2023-03-08 17:18:00 Cathleen Bearden [facility] POCT SARS-COV-2 ANTIGEN (BINAX NOW) 2023-03-08 17:07:00 Cathleen Bearden [facility] PATIENT FINANCIAL POLICY 2023-03-08 16:58:48 Doctor Unassigned, Sabinal [facility] GARDASIL 9 (HPV 9V) VACCINE 2022-07-02 20:14:37 AdMaggie montenegro [facility] Encounters Start Date/Time End Date/Time Encounter Type Admission Type Attending [facility] Care Facility Care Department Encounter ID Source 2025-08-02 14:30:00 2025-08-02 14:30:00 Outpatient R MAGGIE LI VIVIAN [facility] [id number] [facility] 2025-07-31 00:00:00 2025-08-01 08:08:52 Patient Secure Msg Doctor Unassigned, Sabinal Doctor Unassigned, Sabinal [facility] PROFESSIO NAL BUILDING 1..840.114 350.1.13.10 4.2.7.2.686 [id number] [facility] 2025-07-31 00:00:00 2025-07-31 15:38:58 Telephone Yuki Fontana [facility] MED[facility] OFF[facility] BUILDING 1..840.114 350.1.13.10 4.2.7.2.686 [id number] [facility] 2025-07-17 10:59:00 2025-07-17 16:30:00 Emergency X WILL ROSAS DIETRICH [facility] ERT [id number] [facility] 2025-05-30 00:24:00 2025-05-30 01:47:00 Emergency X Roland Kowalski [facility] 1..840.114 350.1.13.10 4.2.7.2.686 [id number] [facility] 2023-08-01 13:00:00 2023-08-01 13:52:30 Outpatient R BOB WOLFF [facility] [id number] [facility] 2023-08-01 13:00:00 2023-08-01 13:52:30 Urgent Care Bob Wolff Unknown, [facility]ending [facility] 1..840.114 350.1.13.10 4.2.7.2.686 [id number] [facility] 2023-08-01 00:00:00 2023-08-01 00:00:00 Orders Only Doctor Unassigned, Sabinal [facility] 1.2.840.114 350.1.13.10 4.2.7.2.686 [id number] [facility] 2023-06-06 15:04:00 2023-06-06 21:48:00 Emergency X SANTINO GARCIA [facility] ERT [id number] [facility] 2023-06-06 15:04:00 2023-06-06 21:48:00 Emergency VasutSantino J [facility] 1.2.840.114 350.1.13.10 4.2.7.2.686 [id number] [facility] 2023-06-06 14:00:00 2023-06-06 14:00:00 Outpatient R LOLA S, SHANNON LOLA S, SHANNON [facility] [id number] [facility] 2023-06-02 00:00:00 2023-06-02 00:00:00 Telephone Maggie Li [facility] PROFESSIO NAL BUILDING 1.2.840.114 350.1.13.10 4.2.7.2.686 [id number] [facility] 2023-03-08 12:00:00 2023-03-08 12:20:00 Urgent Care Cathleen Bearden Unknown, Attending [facility] BUILD[facility] 1..840.114 350.1.13.10 4.2.7.2.686 [id number] [facility] 2023-03-08 12:00:00 2023-03-08 12:00:00 Outpatient CATHLEEN UGARTE [facility] [id number] [facility] 2023-03-08 00:00:00 2023-03-08 00:00:00 Orders Only Doctor Unassigned, Sabinal [facility] 1.840.114 350.1.13.10 4.2.7.2.686 [id number] [facility] 2023-03-08 00:00:00 2023-03-08 00:00:00 Letter (Out) Cathleen Bearden [facility] 1..840.114 350.1.13.10 4.2.7.2.686 [id number] [facility] 2022-10-01 15:30:00 2022-10-01 15:30:00 Outpatient R [facility] [id number] [facility] 2022-07-02 14:30:00 2022-07-02 15:03:56 Outpatient R [facility] [id number] [facility] 2022-07-02 14:30:00 2022-07-02 15:03:56 Office Visit Adum, [facility] BUILDING 1..840.114 350.1.13.10 4.2.7.2.686 [id number] [facility] 2022-06-29 14:30:00 2022-06-29 15:06:26 Outpatient R [facility] [id number] [facility] 2022-06-29 14:30:00 2022-06-29 15:06:26 Outpatient R [facility] [id number] [facility] 2022-06-29 14:30:00 2022-06-29 15:06:26 Office Visit Adum, [facility] BUILDING 1..840.114 350.1.13.10 4.2.7.2.686 [id number] [facility] 2022-06-29 00:00:00 2022-06-29 00:00:00 Letter (Out) Maggie Li [facility] 1.2.840.114 350.1.13.10 4.2.7.2.686 [id number] [facility] 2022-06-28 00:00:00 2022-06-28 00:00:00 Orders Only Doctor Unassigned, Sabinal [facility] 1.2.840.114 350.1.13.10 4.2.7.2.686 [id number] [facility] 2020-11-20 14:45:00 2020-11-20 14:45:00 Outpatient NITA CANTU [facility] [id number] [facility] 2020-07-11 00:00:00 2020-07-11 00:00:00 Telephone Nita Denis [facility] DIRECTOR OPERATIONS BROADCAST [facility]3] 1..840.114 350.1.13.10 4.2.7.2.686 [id number] [facility] 2020-05-30 00:00:00 2020-05-30 00:00:00 Letter (Out) Doctor Unassigned, Sabinal [facility] 1.2.840.114 350.1.13.10 4.2.7.2.686 [id number] [facility] 2018-05-02 10:45:00 2018-05-02 13:43:42 Outpatient BRIGETTE HELTON [facility] [id number] [facility] Results Test Description Test Time Test Comments Results Resul t Comments Source CT Abdomen pelvis w contrast 2025-07-01 7 21:17:26 EXAM: CT ABDOMEN PELVIS W CONTRAST 07/17/2025 1:55 PM HISTORY: 24 years-old Female with vomiting, fever, ?and right lowerquadrant pain for one month. COMPARISON: None. TECHNIQUE: Contiguous axial imaging from the level of the lung basesthrough the upper thighs was performed after the administration ofintravenous nonionic iodinated contrast. Abdomen was scanned in venousphase. Corresponding coronal and sagittal MPR reconstructions wereobtained. FINDINGS: LOWER THORAX: The lungs bases are clear. No pleural effusions arevisualized. No cardiomegaly. LIVER: The liver has normal parenchyma and size. No focal hepatic lesion.The portal veins are patent. GALLBLADDER AND BILIARY TREE: The gallbladder is unremarkable. There is nointra or extrahepatic biliary ductal dilation. SPLEEN: The spleen enhances normally. ?A splenule is noted. PANCREAS: The pancreas enhances normally without ductal dilation. ADRENAL GLANDS: No adrenal nodules. KIDNEYS: The kidneys show symmetric enhancement. No hydronephrosis. Nonephrolithiasis. No masses are visualized. PELVIS/BLADDER: The bladder is decompressed which limits evaluation. Unremarkable reproductive organs. GI TRACT: No bowel dilatation or wall thickening. The appendix is normal(series 3 image 77).. PERITONEUM AND RETROPERITONEUM: No free air or free fluid. LYMPH NODES: Multiple prominent subcentimeter mesenteric lymph nodes arenoted at the level of the renal hilum measuring up to 8mm. VESSELS: No aortic aneurysm. BONES AND SOFT TISSUES: No aggressive bone lesions. There is a 2.9 x 1.7 x2.4 cm soft tissue density mass seen along the anterior lower leftabdominal fascia (series 3 image 94). Questionable second tiny nodule inthe right. [id number] 18:22:11* Test Item Value Reference Range Interpretation Comme nts LACTIC ACID (test code = 2176411997) 1.38 mmol/L 0.50-2.20 QUES Lab Interpretation (test cod e = 83784-5) [facility] [id number] 06:08:10* Test Item Value Reference Range Interpretation Comme nts PREG SERUM (test code = 0121268321) Negative ROSA M (test code = ROSA M) Less than 10 IU/L. ?If low titer or ectopic is suspected, resubmit specimen in 48-72 hours. [facility]OL[facility] (89393)2025-05-30 06:06:59* Test Item Value Reference Range Interpretation Comme nts NA (test code = 4102329098) 143 mmol/L 135-145 K (test code = 7752792280) 4.1 mmol/L 3.5-5.0 CL (test code = 4915692135) 106 mmol/L 98-108 CO2 TOTAL (test code = 0885100804) 26 mmol/L 23-31 AGAP (test code = 2458224802) 11 2-16 BUN (test code = 4055622573) 14 mg/dL 7-23 GLUCOSE (test code = 3977066075) 100 mg/dL 70-110 CREATININE (test code = 2160-0) 0.73 mg/dL 0.50-1.04 TOTAL BILI (test code = 3781172023) 0.5 mg/dL 0.1-1.1 CALCIUM (test code = 8326317939) 8.6 mg/dL 8.6-10.6 T PROTEIN (test code = 9271909965) 8 g/dL 6.3-8.2 ALBUMIN (test code = 8752853122) 4.5 g/dL 3.5-5.0 ALK PHOS (test code = 4182855686) 79 U/L 34-122 ALTv (test code = 1742-6) 18 U/L 5-35 AST(SGOT) (test code = 6300278785) 21 U/L 13-40 eGFR (test code = 51651-0) 117.9 mL/min/1.73m2 CKD-EPI eGFR (20 21). Assuming creatinine has been stable day-to-day for at least three months, the eGFR indicates Category G1 (>= 90 mL/min/1.73 m2) [facility] WITH [id number] 05:52:39* Test Item Value Reference Range Interpretation Comme nts WBC (test code = 6690-2) 9.48 4.30-11.10 RBC (test code = 789-8) 4.68 3.93-5.25 HGB (test code = 718-7) 14 g/dL 11.6-15.0 HCT (test code = 4544-3) 42.2 % 35.7-45.2 MCV (test code = 787-2) 90.2 fL 80.6-95.5 MCH (test code = 785-6) 29.9 pg 25.9-32.8 MCHC (test code = 786-4) 33.2 g/dL 31.6-35.1 RDW-SD (test code = 38201-9) 41.7 fL 39.0-49.9 RDW-CV (test code = 788-0) 12.8 % 12.0-15.5 PLT (test code = 777-3) 307 166-358 MPV (test code = 90618-9) 9.5 fL 9.5-12.9 NRBC/100 WBC (test code = 6715757799) 0 0.0-10.0 NRBC x10^3 (test code = 5419173936) See_Comment [Automated messa ge] The system which generated this result transmitted reference range: 10*3/?L. The reference range was not used to interpret this result as normal/abnormal. GRAN MAT (NEUT) % (test code = 770-8) 54.5 % IMM GRAN % (test code = 1197341226) 0.2 % LYMPH % (test code = 736-9) 35.7 % MONO % (test code = 5905-5) 6.9 % EOS % (test code = 713-8) 2.4 % BASO % (test code = 706-2) 0.3 % GRAN MAT x10^3(ANC) (test code = 6111073245) 5.17 10*3/uL 1.88-7.09 IMM GRAN x10^3 (test code = 5722841518) 0.00-0.06 LYMPH x10^3 (test code = 731-0) 3.38 10*3/uL 1.32-3.29 H MONO x10^3 (test code = 742-7) 0.65 10*3/uL 0.33-0.92 EOS x10^3 (test code = 711-2) 0.23 10*3/uL 0.03-0.39 BASO x10^3 (test code = 704-7) 0.03 10*3/uL 0.01-0.07 Lab Interpretation (test code = 02534-9) Abnormal [facility] [id number] 05:35:00* Test Item Value Reference Range Interpretation Comme nts POCT PREG (test code = 1605) Negative On board controls acceptable with C Line (test code = 3574) Yes POCT PREG LOT # (test code = 3575) [id number] POCT PREG TEST DATE ( test code = 3576) 09-25-26 Lab Interpretation (test cod e = 48039-2) Normal [facility] SARS-COV-2 ANTIGEN (BINAX NOW)2023-08-01 19:52:00* Test Item Value Reference Range Interpretation Comme nts POCT SARS-COV-2 ANTIGEN (test code = 99846-6) Not Detected Not Detected On board controls acceptable with C Line (test code = 3574) Yes ROSA M (test code = ROSA M) accurate developme nt and interpretation of all internal controls Lab Interpretation (test code = 29414-6) Normal [facility] MOLECULAR [id number] 18:43:58* Test Item Value Reference Range Interpretation Comme nts POCT Molecular Strep (test c ode = 46722-1) Positive Negative A Lab Interpretation (test cod e = 99868-3) Abnormal [facility] MOLECULAR [id number] 18:43:58* Test Item Value Reference Range Interpretation Comme nts POCT Molecular Strep (test c ode = 90005-1) Positive Negative A Lab Interpretation (test cod e = 34685-1) Abnormal [facility] MATERNAL HEMO [id number] 00:35:00 * Test Item Value Reference Range Interpretation Comme nts SCREEN (test code = 846) Negative RHIG REQUIRED? (test code = 1747) 1 Syringe [facility] BETA HCG [id number] 21:11:31* Test Item Value Reference Range Interpretation Comme nts BETA HCG (test code = 9785811664) 60.09 See_Comment [Automated [employer] ge] The system which generated this result transmitted reference range: Non- female and male patients: <5 mIU/mL. The reference range was not used to interpret this result as normal/abnormal. ROSA M (test code = ROSA M) Gestational Age ?Range (mIU/mL) 1-10 ?Weeks ?13-52806567-73 Weeks ?64571-17723713-31 Weeks ?0447-75951098-45 Weeks ?9966-252105 Biotin has been reported to cause a negative bias, interpret results relative to patient's use of biotin. [facility] [id number] 21:05:00* Test Item Value Reference Range Interpretation Comme nts POCT PREG (test code = 1605) Negative On board controls acceptable with C Line (test code = 3574) Yes POCT PREG LOT # (test code = 3572) [id number] POCT PREG TEST DATE ( test code = 3576) 08/05/2024 Lab Interpretation (test cod e = 72973-9) Normal [facility]. METABOLIC PANEL (85566)2023-06-06 20:51:17* Test Item Value Reference Range Interpretation Comme nts NA (test code = 9543623616) 139 mmol/L 135-145 K (test code = 2434151943) 4.0 mmol/L 3.5-5.0 CL (test code = 2757117854) 102 mmol/L 98-108 CO2 TOTAL (test code = 5446169702) 28 mmol/L 23-31 AGAP (test code = 9908708377) 9 2-16 BUN (test code = 9069422278) 10 mg/dL 7-23 GLUCOSE (test code = 4461301148) 94 mg/dL 70-110 CREATININE (test code = 1108152985) 0.55 mg/dL 0.50-1.04 TOTAL BILI (test code = 5152740278) 0.7 mg/dL 0.1-1.1 CALCIUM (test code = 7565499276) 8.5 mg/dL 8.6-10.6 L T PROTEIN (test code = 9993844566) 7.7 g/dL 6.3-8.2 ALBUMIN (test code = 0919818474) 4.0 g/dL 3.5-5.0 ALK PHOS (test code = 2661404375) 63 U/L 34-122 ALTv (test code = 1742-6) 16 U/L 5-35 AST(SGOT) (test code = 8648643325) 17 U/L 13-40 eGFR (test code = 5066162801) 138.2 mL/min/1.73m2 ROSA M (test code = [...] imaging tests). Lab Interpretation (test code = 65460-2) Abnormal [facility] WITH [id number] 20:35:52* Test Item Value Reference Range Interpretation Comme nts WBC (test code = 6690-2) 9.27 See_Comment [Automated [employer]] The system which generated this result transmitted reference range: 4.30 - 11.10 10*3/?L. The reference range was not used to interpret this result as normal/abnormal. RBC (test code = 789-8) 4.64 See_Comment [Automated [employer]] The system which generated this result transmitted [...] 34.0 g/dL 31.6-35.1 RDW-SD (test code = 40915-1) 41.0 fL 39.0-49.9 RDW-CV (test code = 788-0) 12.8 % 12.0-15.5 PLT (test code = 777-3) 271 See_Comment [Automated [employer] Gear[employer] ge] The system which generated this result transmitted reference range: 166 - 358 10*3/?L. The reference range was not used to interpret this result as normal/abnormal. MPV (test code = 97919-0) 9.0 fL 9.5-12.9 L NRBC/100 WBC (test code = 6869084488) 0.0 See_Comment [Automated [employer] ssage] The system which generated this result transmitted reference range: 0.0 - 10.0 /100 WBCs. The reference range was not used to interpret this result as normal/abnormal. NRBC x10^3 (test code = 0693537624) See_Comment [Automated [employer] Gear[employer] ge] The system which generated this result transmitted reference range: 10*3/?L. The reference range was not used to interpret this result as normal/abnormal. GRAN MAT (NEUT) % (test code = 770-8) 65.6 % IMM GRAN % (test code = 5843128604) 0.30 % LYMPH % (test code = 736-9) 26.1 % MONO % (test code = 5905-5) 5.6 % EOS % (test code = 713-8) 2.2 % BASO % (test code = 706-2) 0.2 % GRAN MAT x10^3(ANC) (test code = 8473985747) 6.08 10*3/uL 1.88-7.09 IMM GRAN x10^3 (test code = 4797492475) 0.03 10*3/uL 0.00-0.06 LYMPH x10^3 (test code = 731-0) 2.42 10*3/uL 1.32-3.29 MONO x10^3 (test code = 742-7) 0.52 10*3/uL 0.33-0.92 EOS x10^3 (test code = 711-2) 0.20 10*3/uL 0.03-0.39 BASO x10^3 (test code = 704-7) 0.01-0.07 Lab Interpretation (test code = 93192-7) [facility]normal [facility] [id number] 17:18:00* Test Item Value Reference Range Interpretation [...] internal controls Lab Interpretation (test code = 05462-9) Normal [facility] SARS-COV-2 ANTIGEN (BINAX NOW)2023-03-08 17:08:00* Test Item Value Reference Range Interpretation Comme nts POCT SARS-COV-2 ANTIGEN (test code = 78129-1) Not Detected Not Detected On board controls acceptable with C Line (test code = 3574) Yes ROSA M (test code = ROSA M) accurate developme nt and interpretation of all internal controls Lab Interpretation (test code = 81666-9) Normal [facility] Notes Date/Time Note Provider Source 2025-07-31 14:02:07 Pt returning the call. Zaria Joel [facility] 2025-07-31 13:01:36 Images from the original note were not included. Pt was seen in ER on 07/17 at [facility], pt lives in [place] and staff message was sent to nurse pool in [facility] to schedule appt for one week ER follow up. Called pt [facility] Routed call to [facility] clinic as pt is established with that location and lives in that area. Ria Pete RN [facility] 2025-07-17 16:30:38 Patient given printed and verbal discharge instructions and medications, encouraged hydration and proper nutrition. Discussed indications, medication side effects, and therapeutic response to medications. Advised to take until completed unless adverse reaction occurs - if occurs, discontinue medication and follow up with PCP/seek medical attention. Patient verbalized understanding of instructions. Patient awake alert oriented, respirations even and unlabored, no acute distress noted, skin warm & dry, color appropriate for race, moves all extremities well. Patient encouraged to follow up with PCP and to keep all appropriate appointments as scheduled or to return to ED for new/prolonged/worsening of symptoms No adverse reaction to medications given in ER noted upon discharge PIV d'cd without complications, dressing to site, catheter intact. Patient in possession of all belongings. Ambulatory to [facility]. Isela Quispe RN [facility] 2025-07-17 10:57:12 Chantal Zaragoza is a 24 year old female presents to ED c/o vomiting, fever and RLQ abd pain that started 1 month ago "but its just getting worse". Unknown status. Pt is aox4 with gcs 15 skin warm and dry resp even and unlabored. NAD Noted. Pt placed in green pool due to ED saturation Sivan Ferreira RN [facility] 2025-05-30 01:47:12 Pt given printed and verbal discharge instructions regarding dysmenorrhea. Prescriptions provided. Pt verbalized understanding of instructions, pt awake alert oriented, resp reg unlabored, skin w/d, color appropriate for race, moves all ext well, pt encouraged to follow up with pcp. Advised to seek medical attention for new/prolonged/worsening of symptoms. No adverse reaction to meds given in ER noted upon discharge. PIV d'cd, dressing to site, catheter in tact. Awake, alert oriented, resp reg unlabored, skin w/d, pt leaving amb with steady gait, in no apparent distress. [facility] 2025-05-30 00:32:26 CC: pelvic pain, woke up and had some blood, pt thinks she may be . States she has irregular cycles T Master Dey RN [facility] 2023-06-06 21:47:16 Formatting of this n ote might be different from the original. Pt given printed and verbal discharge instructions regarding vaginal bleeding, encouraged hydration, 0 Prescriptions provided Pt verbalized understanding of instructions, pt awake alert oriented, resp reg unlabored, skin w/d, color appropriate for race, moves all ext well,pt encouraged to follow up with pcp Advised to seek medical attention for new/prolonged/worsening of symptoms, Symptoms improved. No adverse reaction to meds given in ER noted upon discharge PIV d'cd, dressing to site, catheter in tact. Awake, alert oriented, resp reg unlabored, skin w/d, pt leaving amb with steady gait, in no apparent distress, [facility] 2023-06-06 21:30:32 Formatting of this n ote might be different from the original. Rhogam given right hip IM. Lot: [id number] Expiration: [id number]. Downtime formed signed and verified with two nurses [facility] 2023-06-06 14:59:53 Formatting of this n ote might be different from the original. States she was seen at [facility] on 06/01/2023 for vaginal bleeding and abd pain. States she was told then that she was . States she was told to follow up with her ob but missed her appointment this morning. LMP: "about 4 weeks ago" Living 1 Saloni Martinez RN [facility] [place] 2023-06-06 14:50:00 Formatting of this n ote is different from the original. 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 female with persistent vaginal bleeding. Recently seen at [facility] ER and told possible ectopic and to f/u with DIRECTOR OPERATIONS BROADCAST. Patient missed appointment and present here with persistent vaginal bleeding and mild abdominopelvic cramping. 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 Vaping Use Never used Alcohol Use No. Drug Use No. Sexual Activity Sexually active; Partners: Male. Comments: nexplanon Past Surgical History: Past Surgical History: Procedure Laterality Date SECTION N/A 03/04/2018 Surgeon: Soham Ricardo; Location: Labor and Delivery - [place] SECTION N/A 02/10/2019 Surgeon: Jeovanny Longo MD; Location: Labor and Delivery - [place] WOUND DEBRIDEMENT N/A 03/17/2018 Surgeon: Silvio Willson MD; Location: Labor and Delivery - [place] Review of Systems: Review of Systems Constitutional: Negative for chills and fever. HENT: Negative. Eyes: Negative. Respiratory: Negative. Breasts: Negative. Cardiovascular: Negative. Gastrointestinal: Positive for abdominal pain and nausea. Genitourinary: Positive for vaginal bleeding and pelvic pain. Negative for urgency and decreased urine volume. Musculoskeletal: Negative. Skin: Negative. Neurological: Negative. Psychiatric/Behavioral: Negative. Endocrine: Endocrine negative Physical Exam: ED Triage Vitals [06/06/23 1502] Weight 100.5 kg (221 lb 8 oz) Actual or estimated Actual Height BP (!) 143/103 Pulse 95 Resp 16 Temp 37 ?C (98.6 ?F) Temp source Oral SpO2 98 % Measured on Room air Physical Exam Vitals and nursing note reviewed. Constitutional: General: She [...] alert. Psychiatric: Mood and Affect: Mood normal. Radiology: US FIRST TRIMESTER LESS THAN 14 WEEKS [...] canal. RL: 460 End of report. Lab Results: Lab Results CBC WITH DIFF - Abnormal Result [...] 0.01 - 0.07 10*3/uL COMP. METABOLIC PANEL (45638) - Abnormal NA 139 135 - 145 [...] patients: <5 mIU/mL RHO (D) IMMUNE GLOBULIN EKG: If EKG completed, see Procedure Note. Orders and Treatments: Orders Placed This Encounter Procedures US FIRST TRIMESTER LESS THAN 14 WEEKS WITH TRANSVAGINAL CBC WITH DIFF COMP. METABOLIC PANEL (34299) Type and Screen - ONCE Routine URINALYSIS TOTAL BETA HCG ASSAY POCT TEST RHO (D) IMMUNE GLOBULIN Orders Placed This Encounter Medications rho(D) immune globulin (RHOGAM) syringe 300 mcg First Provider Eval: ED Events None No notes of EC Admission Criteria type on file. ED COURSE Diagnosis/Impression as of 06/06/23 1856 Vagina bleeding Procedures: Procedures MDM: Medical Decision Making Amount and/or Complexity of Data Reviewed Labs: ordered. Radiology: ordered. Risk Prescription drug management. A) Likely Missed Ab , RH Negative Disposition/Condition: Rhogam in ED, Follow-up with [facility] Clinic in 2 days for further evaluation and care/recommendations, 1st Trimester ER warnings. ED Disposition None Discharge Medications: Patient's Medications START taking these medications No medications [...] these medications No medications on file Follow-up: [facility] clinic in 2-3 days. Electronically signed by: Santino Garcia MD 06/06/239 [facility] EMERGENCY PHYSICIAN STAFF [facility] 2023-06-02 15:05:06 Formatting of this n ote might be different from the original. Name and verified. Sent pt to PSS to schedule. AMI CID RN 06/02/2023 3:05 PM Ami Cid RN [facility] 2023-06-02 12:55:42 Formatting of this n ote might be different from the original. Patient was seen in ER in [place] 06/01/23. Patient did not know she was . She had abnormal bleeding and pain. She went to ER in [place]. She lost baby at 3 weeks. Patient is wanting to know if she should come in clinic to be checked out or should she wait. Patient is still having bleeding. Mother number is [id number] Self [id number] Remedios Meadows [facility]
[2025-08-14 15:29] LABS: Absolute Lymphocytes (CBC) 2.4 K/uL (0.7-4.9); Hematocrit 39.0 % (36.0-45.0); Hemoglobin 13.3 g/dL (12.0-15.0); MCH 29.3 pg (27.0-35.0); MCHC 34.2 g/dL (32.0-36.0); MCV 85.8 fL (80-100); MPV 7.2 fL (7.6-11.3); Nucleated RBC Absolute Count 0.0 (0-0); Nucleated Red Blood Cells % 0.0 % (0-0); RBC Red Blood Cell Count 4.55 M/uL (3.86-4.86); White Blood Count 8.60 thou/uL (4.3-10.9)
[2025-08-14 15:38] LABS: Urine Crystals Unidentified Few /HPF (None Seen); Urine Culture Reflex Order NOT NEEDED; Urine Microscopic Reflex YN ORDER UMIC; Urine WBC Clump Rare /HPF (None Seen); Urine Yeast (Budding) Trace /HPF (None Seen)
[2025-08-14 15:39] LABS: PT Prothrombin Time 12.8 SECONDS (10-13.0); PTT, Activated Partial Thromb 37.0 SECONDS (27.2-37.4); Protime INR 1.14
[2025-08-14 15:49] LABS: ALT/SGPT 18 U/L (13-56); Albumin 3.5 g/dL (3.4-5.0); Albumin/Globulin Ratio 0.9 (1.1-1.8); Alkaline Phosphatase 66 U/L (45-117); Anion Gap 8.7 mEq/L (5.0-15.0); BUN Blood Urea Nitrogen 20 mg/dL (7-18); Globulin 3.9 g/dL (2.3-3.5); Glucose Level 80 mg/dL (74-106); Lipase 18 U/L (13-75); Potassium 3.7 mEq/L (3.5-5.1)
[2025-08-14 15:50] LABS: AST/SGOT < 10 U/L (15-37)
[2025-08-14] MEDS ORDERED: KETOROLAC 30 MG/ML INJ ONE (16:52)
[2025-08-14] MEDS ORDERED: NA CHLORIDE 0.9% 1,000 ML ONE (16:52)
--- NOTE | 2025-08-14 17:23 | RAD REPORT ---
EXAMINATION: US Transvaginal Study Probe CLINICAL INDICATION: Female 24 years old.[facility] MA[facility] unknown VAGINAL BLEEDING Bed Name: 12 TECHNIQUE: Real-time ultrasonography of the pelvis was performed transvaginally and transabdominally. Color and spectral Doppler evaluation of the ovaries was performed. COMPARISON: No prior exam. FINDINGS: UTERUS AND CERVIX: The uterus measures 10.4 cm in length. The uterus is normal. No masses seen The en dometrium is normal, 0.3 cm in thickness. Ovaries were not well visualized bilaterally given overshadowing bowel. FREE FLUID: No free fluid. IMPRESSION: No suspicious uterine abnormalities. Nonvisualization of both ovaries limits evaluation.
--- NOTE | 2025-08-14 17:57 | RAD REPORT ---
EXAMINATION: CT Abdomen Pelvis W Contrast CLINICAL INDICATION: Female, 24 years old. left lower abdomen pain TECHNIQUE: CT abdomen and pelvis was performed, after the administration of IV contrast, as per [facility] protocol. Axial, sagittal and coronal reconstructions were obtained. One or more of the following dose reduction techniques were used: Automated exposure control, adjustment of the mA and k V according to patient size, and iterative reconstruction. Unless otherwise specified, incidental findings do not require dedicated imaging follow-up. COMPARISON: No prior exam. FINDINGS: LOWER CHEST: The visualized lung bases are clear. LIVER: Normal in size and contour. No focal lesion. BILIARY SYSTEM: No suspicious abnormalities. SPLEEN: Normal size. No focal lesion. PANCREAS: No mass, ductal dilation, or holli-pancreatic fluid. ADRENALS: Normal; no mass. KIDNEYS: Normal size and contour. No hydronephrosis. URINARY BLADDER: Unremarkable. GASTROINTESTINAL TRACT: No evidence of free air, significant intra-abdominal free fluid, bowel obstru ction or abscess. APPENDIX: Normal appendix. LYMPH NODES: No lymphadenopathy. MUSCULOSKELETAL: No acute or suspicious osseous abnormality. ADDITIONAL FINDINGS: Midline small supraumbilical fat-containing hernia. IMPRESSION: No acute or concerning abnormalities seen in the abdomen or pelvis.
--- NOTE | 2025-08-14 18:14 | EDPHYS ---
Physician Documentation [facility] Name: Kellee Zaragoza Age: 24 yrs Sex: Female : 2000 Arrival Date: 08/14/2025 Time: 14:36 Bed 12 Private MD: ED Physician Shivam Elias HPI: 08/14 15:00 This 24 yrs old Female presents to ER via Ambulatory with complaints of cp Abdominal Pain, Rectal Bleeding. 15:00 The patient presents with abdominal pain in the left lower quadrant. cp 15:00 Onset: The symptoms/episode began/occurred several months. cp 15:00 Associated signs and symptoms: Pertinent positives: vaginal bleeding, intermittent cp bright red blood in stool, Pertinent negatives: chest pain, constipation, diarrhea, fever. The symptoms are described as intermittent. Severity of pain: in the emergency department the pain is unchanged despite home interventions. Patient reports having CT of abdomen last month at [facility] that showed lower abdomen mass. [employer] PERSON: 14:53 LMP 07/31/2025, unknown dd2 Historical: - Allergies: 14:53 PENICILLINS; dd2 - PMHx: 14:53 None; dd2 - PSHx: 14:53 section; dd2 - Social history:: Smoking status: Patient denies any tobacco usage or history of. ROS: 15:05 Constitutional: Negative for body aches, chills, fever, weight loss, cp 15:05 ENT: Negative for drainage from ear(s), ear pain, sore throat, difficulty swallowing, cp difficulty handling secretions, 15:05 Respiratory: Negative for cough, shortness of breath, wheezing, 15:05 Abdomen/GI: Positive for abdominal pain, rectal bleeding, 15:05 : Positive for vaginal bleeding, 15:05 All other systems are negative, Exam: 15:10 Constitutional: The patient appears in no acute distress, alert, awake, non-toxic, well cp developed, well nourished, obese, 15:10 Head/Face: Normocephalic, atraumatic. cp 15:10 Eyes: Periorbital structures: appear normal, Conjunctiva: normal, no exudate, no injection, Sclera: no appreciated abnormality, Lids and lashes: appear normal, bilaterally, 15:10 ENT: External ear(s): are unremarkable, Nose: is normal, Mouth: Lips: moist, Oral mucosa: moist, Posterior pharynx: Airway: no evidence of obstruction, patent, 15:10 Chest/axilla: Inspection: normal, 15:10 Cardiovascular: Rate: normal, Rhythm: regular, 15:10 Respiratory: the patient does not display signs of respiratory distress, Respirations: normal, no use of accessory muscles, no retractions, labored breathing, is not present, Breath sounds: are clear throughout, no decreased breath sounds, no stridor, no wheezing, 15:10 Abdomen/GI: Inspection: obese Bowel sounds: active, all quadrants, Palpation: soft, in all quadrants, moderate abdominal tenderness, in the left lower quadrant, rebound tenderness, is not appreciated, involuntary guarding, is not appreciated, 15:10 Back: CVA tenderness, is absent, Vital Signs: 14:50 BP 136 / 92; Pulse 93; Resp 16; Temp 98.4; Pulse Ox 100% on R/A; Weight 90.72 kg; Pain dd2 8/10; 17:04 BP 126 / 92; Pulse 77; Resp 16; Pulse Ox 100% on R/A; jb4 14:50 Pain Scale: Adult dd2 MDM: 14:45 Medical Screening Exam initiated cp 18:12 Data reviewed: vital signs, nurses notes, lab test result(s), radiologic studies, CT cp scan, ultrasound. 18:12 Differential diagnosis: gastritis, non-specific abd pain, Ovarian Torsion, Pelvic cp Inflammatory Disease, Pyelonephritis, Ureterolithiasis, urinary tract infection, colitis. I considered the following discharge prescriptions or medication management in the emergency department Medications were administered in the Emergency Department. See MAR. Counseling: I had a detailed discussion with the patient and/or guardian regarding the historical points, exam findings, and any diagnostic results supporting the discharge/admit diagnosis, lab results, radiology results, the need for outpatient follow up, a ground worker, an OB/Gyne specialist, to return to the emergency department if symptoms worsen or persist or if there are any questions or concerns that arise at home. Special discussion: Based on the patient's Hx, exam, and Dx evaluation, there is no indication for emergent surgery or inpatient Tx. It is understood by the patient/guardian that if the Sx's persist or worsen they need to return immediately for re-evaluation. 08/14 14:56 Order name: CBC with Diff; Complete Time: 15:56 cp 08/14 17:18 Interpretation: Normal except: MPV 7.2. cp 08/14 14:56 Order name: CMP; Complete Time: 15:56 cp 08/14 17:18 Interpretation: Normal except: BUN 20; AST < 10; GLOB 3.9; A/G 0.9. cp 08/14 14:56 Order name: Lipase; Complete Time: 15:56 cp 08/14 14:56 Order name: Test, Urine; Complete Time: 15:56 cp 08/14 14:56 Order name: PT-INR; Complete Time: 15:56 cp 08/14 14:56 Order name: Ptt, Activated; Complete Time: 15:56 cp 08/14 14:59 Order name: Magnesium; Complete Time: 15:56 cp 08/14 14:59 Order name: UA Rfx Manas Cult if indicated; Complete Time: 15:56 cp 08/14 15:58 Order name: CT Abd/Pelvis - IV Contrast Only; Complete Time: 17:58 cp 08/14 16:03 Order name: Transvaginal Study Probe; Complete Time: 17:54 EDMS 08/14 14:56 Order name: IV Saline Lock; Complete Time: 15:23 cp 08/14 14:56 Order name: Labs collected and sent; Complete Time: 15:23 cp Administered Medications: 17:04 Drug: Ketorolac IVP 30 mg IVP once Route: IVP; Site: right antecubital; jb4 17:04 Drug: NS 0.9% IV 1000 ml IV at 1 bolus Per protocol; to be given as a bolus over 60 jb4 minutes Route: IV; Rate: 1 bolus; Site: right antecubital; Disposition: 08/15 18:38 Chart complete. cp Disposition Summary: 08/14/25 18:13 Discharge Ordered Notes: Location: Home cp Problem: new cp Symptoms: have improved cp Condition: Stable cp Diagnosis - Lower abdominal pain, unspecified cp - Other specified abnormal uterine and vaginal bleeding cp - Hematochezia cp Followup: cp - With: Arun De Los Santos MD - When: 5 - 6 days - Reason: Recheck today's complaints Discharge Instructions: - Discharge Summary Sheet cp - Abdominal Pain, Adult cp - Abnormal Uterine Bleeding cp - Bloody Diarrhea cp Forms: - Medication Reconciliation Form cp - Antibiotic Education cp - Prescription Opioid Use cp - Patient Portal Instructions cp - Leadership Thank You Letter cp Prescriptions: - dicyclomine 20 mg Oral tablet - take 1 tablet ORAL route every 6-8 hours; 30 tablet; Refills: 0, Product cp Selection Permitted - ondansetron 8 mg Oral Tablet,disintegrating - take 1 tablet ORAL route every 12 hours; 15 tablet; Refills: 0, Product cp Selection Permitted Addendum: 08/17/2025 07:24 Co-signature as Attending Physician, Shivam Elias MD I agree with the assessment and c alicia plan of care. Signatures: Dispatcher [employer] EDDC Shivam Elias MD MD cha Page, Corey, PA-C PA-C Sachin High, RN RN jb4 COLLETTE PENNY RN RN dd2 Corrections: (The following items were deleted from the chart) 08/14 15:58 15:58 Pelvis Complete+US.RAD.ALMAZ ordered. [facility]
--- NOTE | 2025-08-14 18:14 | ER ---
Nurse's Notes [facility] Name: Kellee Zaragoza Age: 24 yrs Sex: Female : 2000 Arrival Date: 08/14/2025 Time: 14:36 Bed 12 Private MD: Diagnosis: Lower abdominal pain, unspecified;Other specified abnormal uterine and vaginal bleeding;Hematochezia Presentation: 08/14 14:50 Chief complaint: Patient states: LT LOWER STOMACH PAIN, BRIGHT RED BLEEDING WITH BOWEL dd2 MOVEMENT X 4 MONTHS, N/V X 1 DAY. PT REPORTS MASS IN CERVIC BUT HAS NOT FOLLOWED UP WITH OBGYN. Coronavirus screen: At this time, the client does not indicate any symptoms associated with coronavirus-19. Ebola Screen: No symptoms or risks identified at this time. Initial Sepsis Screen: Does the patient meet any 2 criteria? No. Patient's initial sepsis screen is negative. Does the patient have a suspected source of infection? No. Patient's initial sepsis screen is negative. Risk Assessment: Do you want to hurt yourself or someone else? Patient reports no desire to harm self or others. Onset of symptoms is unknown. 14:50 Method Of Arrival: Ambulatory dd2 14:50 Acuity: MUSTAPHA 3 dd2 Triage Assessment: 14:53 General: Appears in no apparent distress. uncomfortable, Behavior is calm, cooperative, dd2 appropriate for age. Pain: Complains of pain in left lower quadrant Pain currently is 8 out of 10 on a pain scale. GI: Reports lower abdominal pain, bloody stool, nausea, vomiting. 14:53 : Reports discharge, vaginal bleeding that is. 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 Screenin:39 [facility] ED Fall Risk Assessment (Adult) History of falling in the last 3 months, jb4 including since admission No falls in past 3 months (0 pts) Confusion or Disorientation No (0 pts) Intoxicated or Sedated No (0 pts) Impaired Gait No (0 pts) Mobility Assist Device Used No (0 pt) Altered Elimination No (0 pt) Score/Fall Risk Level 0 - 2 = Low Risk Oriented to surroundings, Maintained a safe environment. Abuse screen: Denies threats or abuse. Nutritional screening: No deficits noted. Tuberculosis screening: No symptoms or risk factors identified. Assessment: 15:03 Reassessment: Patient and/or family updated on plan of care and expected duration. Pain ll1 level reassessed. 16:19 Reassessment: Patient appears in no apparent distress at this time. Patient and/or jb4 family updated on plan of care and expected duration. Pain level reassessed. Patient is alert, oriented x 3, equal unlabored respirations, skin warm/dry/pink. 17:30 Reassessment: Patient appears in no apparent distress at this time. Patient and/or jb4 family updated on plan of care and expected duration. Pain level reassessed. Patient is alert, oriented x 3, equal unlabored respirations, skin warm/dry/pink. 18:38 Reassessment: Patient appears in no apparent distress at this time. Patient and/or jb4 family updated on plan of care and expected duration. Pain level reassessed. Patient is alert, oriented x 3, equal unlabored respirations, skin warm/dry/pink. Vital Signs: 14:50 BP 136 / 92; Pulse 93; Resp 16; Temp 98.4; Pulse Ox 100% on R/A; Weight 90.72 kg; Pain dd2 8/10; 17:04 BP 126 / 92; Pulse 77; Resp 16; Pulse Ox 100% on R/A; jb4 14:50 Pain Scale: Adult dd2 ED Course: 14:39 Patient arrived in ED. al6 14:40 Shivam Cazares PA-C is PHCP. cp 14:40 Shivam Elias MD is Attending Physician. cp 14:53 Triage completed. dd2 14:53 Arm band placed on right wrist. dd2 15:03 Patient placed in an exam room, on a stretcher. ll1 15:03 Warm blanket given. ll1 15:20 No provider procedures requiring assistance completed. Inserted saline lock: 18 gauge jb4 in right antecubital area, using aseptic technique. Blood collected. 15:23 CBC with Diff Sent. jb4 15:23 CMP Sent. jb4 15:23 Test, Urine Sent. jb4 15:23 PT-INR Sent. jb4 15:23 Ptt, Activated Sent. jb4 15:23 Magnesium Sent. jb4 15:23 UA Rfx Manas Cult if indicated Sent. jb4 16:19 Sachin Castaneda, RN is Primary Nurse. jb4 16:43 CT Abd/Pelvis - IV Contrast Only In Process Unspecified. EDMS 16:43 Transvaginal Study Probe In Process Unspecified. EDMS 18:10 Arun De Los Santos MD is Referral Physician. cp 18:38 Patient has correct armband on for positive identification. Bed in low position. Call jb4 light in reach. Side rails up X 1. Provided Education on: discharge instructions. 18:38 IV discontinued, intact, bleeding controlled, No redness/swelling at site. Pressure jb4 dressing applied. Administered Medications: 17:04 Drug: Ketorolac IVP 30 mg IVP once Route: IVP; Site: right antecubital; jb4 17:04 Drug: NS 0.9% IV 1000 ml IV at 1 bolus Per protocol; to be given as a bolus over 60 jb4 minutes Route: IV; Rate: 1 bolus; Site: right antecubital; Medication: 18:38 VIS not applicable for this client. jb4 Outcome: 18:13 Discharge ordered by MD. cp 18:38 Discharged to home ambulatory, jb4 18:38 Condition: stable 18:38 Discharge instructions given to patient, Instructed on discharge instructions, follow up and referral plans. medication usage, Demonstrated understanding of instructions, follow-up care, medications, Prescriptions given X 2, 18:39 Patient left the ED. jb4 Signatures: Dispatcher [employer] EDID Shivam Cazares, CHUY PAMaryellen Sachin Castaneda RN RN jb4 Kermit Louie RN RN ll1 COLLETTE PENNY RN RN dd2 Clare Williamson6
[2025-08-14 19:19] VITALS: TEMP 98.4; O2SAT 100
[2025-08-14 19:20] VITALS: BP 126/92
== END 2025-08-14 18:39 | disposition home or self-care (01) ==
LOC: ER 14:36
DX: R10.32 Left lower quadrant pain (principal); N93.8 Other specified abnormal uterine and vaginal bleeding; K92.1 Melena
CPT/HCPCS: 85025; 81001; 36415; 83735; 81025; 85610; 85730; 83690; 80053; 74177; 76830; 96374; 99284; Q9967; J1885; J7030